=== PATIENT | male | born 1995 | race American Indian/Alaskan Native ===

== ENCOUNTER 2023-07-01 14:47 | Outpatient (REF) | payer OTHER, SELFPAY ==
[2023-07-01 16:53] LABS: MANUAL DIFF FLAG NO
[2023-07-01 17:33] LABS: Basophils Absolute Auto 0.1 X10*3/uL (0.0-0.2); Basophils Percent Auto 0.5 % (0-2); Eosinophils Absolute Auto 0.1 X10*3/uL (0.0-0.4); Hematocrit 44.4 % (42.0-52.0); Hemoglobin 15.1 g/dl (14.0-18.0); Imm Gran Abs Auto 0.03 X10*3/uL (0.00-0.03); Imm Gran Pct Auto 0.3 % (0.0-0.4); Lymphocytes Absolute Auto 2.9 X10*3/uL (1.2-4.9); Lymphocytes Percent Auto 24.5 % (20-40); Mean Corpuscular Hemoglobin 28.8 pg (27.0-33.0); Mean Corpuscular Volume 84.7 fL (80.0-98.0); Monocytes Percent Auto 8.2 % (2-11); Neutrophils Absolute Auto 7.6 x10*3/uL (2.0-8.3); Neutrophils Percent Auto 65.5 % (45-73); Platelet Count 299 X10*3/uL (160-400); Red Blood Count 5.24 X10*6/uL (4.60-5.80); Red Cell Distribution Width 11.9 % (11.0-16.0); White Blood Count 11.7 X10*3/uL (4.8-10.8)
[2023-07-01 18:27] LABS: Alanine Aminotransferase 30 U/L (0-40); Albumin Level 4.7 g/dL (3.5-5.0); Alkaline Phosphatase 78 U/L (39-117); Anion Gap 13 (12-20); Aspartate Amino Transferase 24 U/L (5-37); Blood Urea Nitrogen 17 mg/dL (9-16); Calcium 9.7 mg/dL (8.4-10.2); Carbon Dioxide 28 mmol/L (22-29); Chloride 103 mmol/L (96-108); Estimated Glomerular Filt Rate > 60; Glucose Random 81 mg/dL (60-115); Potassium 3.8 mmol/L (3.3-5.1); Sodium 140 mmol/L (135-145)
[2023-07-01 18:39] LABS: Bilirubin Total 0.4 mg/dL (0.0-1.0)
[2023-07-01 18:41] LABS: TSH reflex Free T4 0.72 uIU/mL (0.32-4.0)
== END 2023-07-01 14:48 | disposition home or self-care (01) ==
LOC: HO.LAB 14:47
PROVIDERS: PCP Student in an Organized Health Care Education/Training Program; Visit Provider Nurse Practitioner
DX: R10.9 Unspecified abdominal pain (principal); K59.04 Chronic idiopathic constipation
CPT/HCPCS: 36415; 80053; 84443; 85025

== ENCOUNTER 2023-07-01 14:47 | Outpatient (AMB) | payer OTHER, SELFPAY ==
--- NOTE | 2023-07-01 14:52 | A.OFFVIS_ITS ---
Intake Vital Signs 07/01/23 15:30 Height 5 ft 10 in Weight 232 lb 5.875 oz BMI 33.3 BP 131/61 Blood Pressure Location Rt brachial Position Sitting Pulse 77 Intake Visit Reasons: Constipation, bloating, abdominal pain Intake Note: Patient presents to in office visit today as a new patient for constipation, bloating, and abdominal pain. CC: Patient c/o constipation, bloating, and abdominal pain since the end of January. Per patient the constipations fluctuates but is now a little bit better. He also reports acid reflux and heartburn sometimes but mostly related to spicy foods or dairy. Bingo Clerk Required: No Accompanied by: Self / Same As Patient Allergies azithromycin [From Zithromax] Allergy (Severe, Verified 07/01/23 15:34) Rash Medication List - Last Reconciled 07/01/23 by ROSA Byrd Lactobac 40-Bifido 3-S.thermop 100 billion cell (Probiotic) caps PO multivitamin 1 tab PO DAILY omega 2-sep-xka-fish oil 100-160-1,000 mg (Fish Oil) 1 cap PO DAILY polyethylene glycol 3350 (Miralax) 17 grams PO DAILY simethicone (Gas Relief (simethicone)) 125 mg PO TID PRN HPI Constipation, bloating, abdominal pain HPI Details 28-year-old male here for initial evalua tion of constipation, bloating, and abdominal pain. He is referred by [facility] in [facility]. PMX Obesity-BMI 34.6 Abdominal pain -right lower quadrant Back pain * SURGICAL HISTORY Tomsillectomy and adenoidectomy ? nasal septoplasty * ALLERGIES Zithromax-rash Environmental, dogs, cats etc * [employer] LABS: No labs in our system REVIEW OF LABS NOTES AND IMAGING FROM [facility] BTCJam ?12.6 https://[facility] [employer]ee [employer]ie.DataRobot.c om/mp_mobile/mpage s/reports/mp_unifi ed_driver?paramete rs=^MINE^,16316951 .0,481853780.0,270 28360.0,566857057. 0,1121.0,%22MP_REA CH%22,%22../../res ources/UnifiedCont ent%22,%22mp_reach _v5%22,9# 13:45 -- RBC 4.[address] [facility] [employer].com.[employer] m/Classkick/Bahu /reports/mp_unifie d_driver?parameter s=^MINE^,26461653. 0,886415455.0,2702 5013.0,123970492.0 ,1121.0,%22MP_REAC H%22,%22../../reso urces/UnifiedConte nt%22,%22mp_reach_ v5%22,9# 3 21:43 4.[address]://[facility] [facility] [employer]Classkick/Bahu /reports/mp_unifie d_driver?parameter s=^MINE^,72322930. 0,383156293.0,2702 5013.0,561335791.0 ,1121.0,%22MP_REAC H%22,%22../../reso urces/UnifiedConte nt%22,%22mp_reach_ v5%22,9# 3 13:45 -- Hgb 14.[address] https://[facility] [facility] Celulares.com.[employer] m/Classkick/Bahu /reports/mp_unifie d_driver?parameter s=^MINE^,37114022. 0,387407462.0,2702 5013.0,999308462.0 ,1121.0,%22MP_REAC H%22,%22../../reso urces/UnifiedConte nt%22,%22mp_reach_ v5%22,9# 3 21:[address] 14.[address] [facility] [employer].com.[employer] m/Classkick/Bahu /reports/mp_unifie d_driver?parameter s=^MINE^,72589378. 0,743641572.0,2702 5013.0,721723237.0 ,1121.0,%22MP_REAC H%22,%22../../reso urces/UnifiedConte nt%22,%22mp_reach_ v5%22,9# 3 13:45 -- Hct 43.[address] https://[facility] [facility] Netli /Classkick/Bahu /reports/mp_unifie d_driver?parameter s=^MINE^,29653001. 0,604013459.0,2702 5013.0,438431238.0 ,1121.0,%22MP_REAC H%22,%22../../reso urces/UnifiedConte nt%22,%22mp_reach_ v5%22,9# 3 21:43 42.[address]://[facility] [facility] [employer]Classkick/Bahu /reports/mp_unifie d_driver?parameter s=^MINE^,19174608. 0,614407900.0,2702 5013.0,430374820.0 ,1121.0,%22MP_REAC H%22,%22../../reso urces/UnifiedConte nt%22,%22mp_reach_ v5%22,9# 3 13:45 -- MCV 87.1 https://[facility] hospitalBazelevs Innovations.[employer]/Classkick/Bahu /reports/mp_unifie d_driver?parameter s=^MINE^,66158099. 0,174781080.0,2702 5013.0,956886061.0 ,1121.0,%22MP_REAC H%22,%22../../reso urces/UnifiedConte nt%22,%22mp_reach_ v5%22,9# 3 21:43 85.3 https://[facility] hospitalPeri[facility]/Classkick/Bahu /reports/mp_unifie d_driver?parameter s=^MINE^,21250838. 0,952732378.0,2702 5013.0,100770660.0 ,1121.0,%22MP_REAC H%22,%22../../reso urces/UnifiedConte nt%22,%22mp_reach_ v5%22,9# 3 13:45 -- MCH 29.[address] https://[facility] [facility] Netli m/Classkick/Bahu /reports/mp_unifie d_driver?parameter s=^MINE^,46476957. 0,782066862.0,2702 5013.0,694432461.0 ,1121.0,%22MP_REAC H%22,%22../../reso urces/UnifiedConte nt%22,%22mp_reach_ v5%22,9# 3 21:43 28.7 https://[facility] Netli /Classkick/Bahu /reports/mp_unifie d_driver?parameter s=^MINE^,58025550. 0,136911727.0,2702 5013.0,366096496.0 ,1121.0,%22MP_REAC H%22,%22../../reso urces/UnifiedConte nt%22,%22mp_reach_ v5%22,9# 3 13:45 -- [facility] 33.[address] https://[facility] [facility] Netli /Classkick/Bahu /reports/mp_unifie d_driver?parameter s=^MINE^,80077716. 0,448093931.0,2702 5013.0,112157009.0 ,1121.0,%22MP_REAC H%22,%22../../reso urces/UnifiedConte nt%22,%22mp_reach_ v5%22,9# 3 21:43 33.6 https://[facility] [employer]com.[employer] m/Classkick/Bahu /reports/mp_unifie d_driver?parameter s=^MINE^,88925834. 0,509996173.0,2702 5013.0,276175200.0 ,1121.0,%22MP_REAC H%22,%22../../reso urces/UnifiedConte nt%22,%22mp_reach_ v5%22,9# 3 13:45 -- Platelet Count 308 https://[employer] /Classkick/Bahu/ reports/mp_unified _driver?parameters =^MINE^,16121186.0 ,800645631.0,85984 013.0,138290300.0, 1121.0,%22MP_REACH %22,%22../../resou rces/UnifiedConten t%22,%22mp_reach_v 5%22,9# 03/20/23 21:43 296 https://[facility] [employer] /Classkick/Bahu/ reports/mp_unified _driver?parameters =^MINE^,53853618.0 ,312176436.0,67006 013.0,463822724.0, 1121.0,%22MP_REACH %22,%22../../resou rces/UnifiedConten t%22,%22mp_reach_v 5%22,9# 01/21/23 13:45 -- RDW-SD 37.[address] https://[facility] [facility] Netli /Classkick/Bahu /reports/mp_unifie d_driver?parameter s=^MINE^,98046868. 0,087702327.0,2702 5013.0,943645508.0 ,1121.0,%22MP_REAC H%22,%22../../reso urces/UnifiedConte nt%22,%22mp_reach_ v5%22,9# 3 21:43 37.1 https://[email or web address] m/Classkick/Bahu /reports/mp_unifie d_driver?parameter s=^MINE^,28847462. 0,876426128.0,2702 5013.0,746907033.0 ,1121.0,%22MP_REAC H%22,%22../../reso urces/UnifiedConte nt%22,%22mp_reach_ v5%22,9# 3 13:45 -- MPV 10.1 https://[email or web address] m/Classkick/Bahu /reports/mp_unifie d_driver?parameter s=^MINE^,59327968. 0,204387116.0,2702 5013.0,821299340.0 ,1121.0,%22MP_REAC H%22,%22../../reso urces/UnifiedConte nt%22,%22mp_reach_ v5%22,9# 3 21:43 10.0 https://[email or web address] m/Classkick/Bahu /reports/mp_unifie d_driver?parameter s=^MINE^,03744241. 0,169221161.0,2702 5013.0,499770430.0 ,1121.0,%22MP_REAC H%22,%22../../reso urces/UnifiedConte nt%22,%22mp_reach_ v5%22,9# 3 13:45 -- Nucleated RBC (Aut omated) 0.0 https://FO[employer].com /Classkick/Bahu/ reports/mp_unified _driver?parameters =^MINE^,97285500.0 ,123526802.0,60317 013.0,456232764.0, 1121.0,%22MP_REACH %22,%22../../resou rces/UnifiedConten t%22,%22mp_reach_v 5%22,9# 03/20/23 21:43 0.5 https://[employer].com /Classkick/Bahu/ reports/mp_unified _driver?parameters =^MINE^,61289477.0 ,936349174.0,39512 013.0,878722736.0, 1121.0,%22MP_REACH %22,%22../../resou rces/UnifiedConten t%22,%22mp_reach_v 5%22,9# 01/21/23 13:45 -- Abs. NRBC 0.0 https://[facility] [employer] /Classkick/Bahu/ reports/mp_unified _driver?parameters =^MINE^,33343016.0 ,949075623.0,56797 013.0,373153134.0, 1121.0,%22MP_REACH %22,%22../../resou rces/UnifiedConten t%22,%22mp_reach_v 5%22,9# 03/20/23 21:43 0.1 https://[facility] monieBeijing [employer]un [employer] /Classkick/Bahu/ reports/mp_unified _driver?parameters =^MINE^,18942695.0 ,295567270.0,43598 013.0,349554111.0, 1121.0,%22MP_REACH %22,%22../../resou rces/UnifiedConten t%22,%22mp_reach_v 5%22,9# 01/21/23 13:45 -- Abs. Neut 6.8 https://[facility] [employer] /Classkick/Bahu/ reports/mp_unified _driver?parameters =^MINE^,24141364.0 ,302066760.0,56053 013.0,279225677.0, 1121.0,%22MP_REACH %22,%22../../resou rces/UnifiedConten t%22,%22mp_reach_v 5%22,9# 03/20/23 21:43 ?10.7 https://leny campa.DataRobot.[facility]/Classkick/Photos to Photos s/reports/mp_unifi ed_driver?paramete rs=^MINE^,90527941 .0,084147174.0,270 14686.0,659735762. 0,1121.0,%22MP_REA CH%22,%22../../res ources/UnifiedCont ent%22,%22mp_reach _v5%22,9# 13:45 -- Abs. Lymph 3.0 https://FOB.com /Classkick/Bahu/ reports/mp_unified _driver?parameters =^MINE^,96012904.0 ,454601568.0,80462 013.0,313601940.0, 1121.0,%22MP_REACH %22,%22../../resou rces/UnifiedConten t%22,%22mp_reach_v 5%22,9# 03/20/23 21:43 1.2 https://FOB.com /Classkick/Bahu/ reports/QPSoftware_unified _driver?parameters =^MINE^,88117255.0 ,010647944.0,39734 013.0,543317123.0, 1121.0,%22MP_REACH %22,%22../../resou rces/UnifiedConten t%22,%22mp_reach_v 5%22,9# 01/21/23 13:45 -- Abs. [place] 1.1 https://FOB.com /Classkick/Bahu/ reports/QPSoftware_unified _driver?parameters =^MINE^,92158252.0 ,080325145.0,94255 013.0,115807020.0, 1121.0,%22MP_REACH %22,%22../../resou rces/UnifiedConten t%22,%22mp_reach_v 5%22,9# 03/20/23 21:43 0.6 https://FO[employer].com /Classkick/Bahu/ reports/QPSoftware_unified _driver?parameters =^MINE^,25462635.0 ,148969311.0,25262 013.0,172078824.0, 1121.0,%22MP_REACH %22,%22../../resou rces/UnifiedConten t%22,%22mp_reach_v 5%22,9# 01/21/23 13:45 -- Abs. Eo 0.1 https://FOB.com /Classkick/Bahu/ reports/QPSoftware_BoxCast _driver?parameters =^MINE^,51775806.0 ,094177914.0,20320 013.0,536886519.0, 1121.0,%22MP_REACH %22,%22../../resou rces/UnifiedConten t%22,%22mp_reach_v 5%22,9# 03/20/23 21:43 0.0 https://FO[employer].com /Classkick/Bahu/ reports/QPSoftware_BoxCast _driver?parameters =^MINE^,67006477.0 ,479161330.0,04071 013.0,193715577.0, 1121.0,%22MP_REACH %22,%22../../resou rces/UnifiedConten t%22,%22mp_reach_v 5%22,9# 01/21/23 13:45 -- Abs. Baso 0.1 https://FOB.com /Classkick/Bahu/ reports/QPSoftware_unified _driver?parameters =^MINE^,78430641.0 ,408059369.0,88907 013.0,990660430.0, 1121.0,%22MP_REACH %22,%22../../resou rces/UnifiedConten t%22,%22mp_reach_v 5%22,9# 03/20/23 21:43 0.1 https://FO[employer].com /Classkick/Bahu/ reports/QPSoftware_BoxCast _driver?parameters =^MINE^,81020016.0 ,478218021.0,58381 013.0,161298438.0, 1121.0,%22MP_REACH %22,%22../../resou rces/UnifiedConten t%22,%22mp_reach_v 5%22,9# 01/21/23 13:45 -- Neut % 60.9 https://[facility].[employer] /Classkick/Bahu /reports/mp_unifie d_driver?parameter s=^MINE^,18461115. 0,033956801.0,2702 5013.0,531199720.0 ,1121.0,%22MP_REAC H%22,%22../../reso urces/UnifiedConte nt%22,%22mp_reach_ v5%22,9# 3 21:43 ?84.7 https://[facility] hospitalmonie.[employer].[facility]/Classkick/Photos to Photos s/reports/mp_unifi ed_driver?paramete rs=^MINE^,54776999 .0,875248172.0,270 63076.0,529598598. 0,1121.0,%22MP_REA CH%22,%22../../res ources/UnifiedCont ent%22,%22mp_reach _v5%22,9# 13:45 -- Lymph % 26.7 https://[facility].[employer] /Classkick/Bahu /reports/mp_unifie d_driver?parameter s=^MINE^,74876267. 0,311333897.0,2702 5013.0,140331873.0 ,1121.0,%22MP_REAC H%22,%22../../reso urces/UnifiedConte nt%22,%22mp_reach_ v5%22,9# 3 21:43 ?9.5 https://[facility]/Classkick/Bahu /reports/mp_unifie d_driver?parameter s=^MINE^,23124210. 0,515636564.0,2702 5013.0,111682224.0 ,1121.0,%22MP_REAC H%22,%22../../reso urces/UnifiedConte nt%22,%22mp_reach_ v5%22,9# 3 13:45 -- [place] % 10.3 https://[employer] a.DataRobot.co m/Classkick/Bahu /reports/mp_unifie d_driver?parameter s=^MINE^,24944839. 0,539715035.0,2702 5013.0,317096278.0 ,1121.0,%22MP_REAC H%22,%22../../reso urces/UnifiedConte nt%22,%22mp_reach_ v5%22,9# 3 21:43 4.6 https://FO[employer].com /Classkick/Bahu/ reports/mp_unified _driver?parameters =^MINE^,29453428.0 ,347688425.0,09899 013.0,209530227.0, 1121.0,%22MP_REACH %22,%22../../resou rces/UnifiedConten t%22,%22mp_reach_v 5%22,9# 01/21/23 13:45 -- Eos % 1.1 https://FO[employer].com /Classkick/Bahu/ reports/mp_unified _driver?parameters =^MINE^,11549234.0 ,518600479.0,05688 013.0,394695735.0, 1121.0,%22MP_REACH %22,%22../../resou rces/UnifiedConten t%22,%22mp_reach_v 5%22,9# 03/20/23 21:43 0.2 https://[employer]com /Classkick/Bahu/ reports/mp_unified _driver?parameters =^MINE^,21616552.0 ,925274720.0,63488 013.0,193359903.0, 1121.0,%22MP_REACH %22,%22../../resou rces/UnifiedConten t%22,%22mp_reach_v 5%22,9# 01/21/23 13:45 -- Baso % 0.7 https://FO[employer].com /Classkick/Bahu/ reports/QPSoftware_BoxCast _driver?parameters =^MINE^,13509187.0 ,677853461.0,80710 013.0,008959660.0, 1121.0,%22MP_REACH %22,%22../../resou rces/UnifiedConten t%22,%22mp_reach_v 5%22,9# 03/20/23 21:43 0.4 https://FO[employer].com /Classkick/Bahu/ reports/QPSoftware_BoxCast _driver?parameters =^MINE^,62973723.0 ,690067274.0,14271 013.0,195283025.0, 1121.0,%22MP_REACH %22,%22../../resou rces/UnifiedConten t%22,%22mp_reach_v 5%22,9# 01/21/23 13:45 -- Imm Gran 0.3 https://FO[employer].com /Classkick/Bahu/ reports/QPSoftware_BoxCast _driver?parameters =^MINE^,09834133.0 ,511549802.0,69133 013.0,973869096.0, 1121.0,%22MP_REACH %22,%22../../resou rces/UnifiedConten t%22,%22mp_reach_v 5%22,9# 03/20/23 21:43 0.6 https://FO[employer].com /Classkick/Bahu/ reports/QPSoftware_BoxCast _driver?parameters =^MINE^,08523104.0 ,768204583.0,20930 013.0,009916111.0, 1121.0,%22MP_REACH %22,%22../../resou rces/UnifiedConten t%22,%22mp_reach_v 5%22,9# 01/21/23 13:45 -- Abs. Imm Gran 0.0 https://FO[employer].com /Classkick/Bahu/ reports/mp_unified _driver?parameters =^MINE^,36484405.0 ,353993955.0,51237 013.0,662965105.0, 1121.0,%22MP_REACH %22,%22../../resou Parachutees/UnifiedConten t%22,%22mp_reach_v 5%22,9# 03/20/23 21:43 0.1 https://[employer]com /Classkick/Bahu/ reports/mp_unified _driver?parameters =^MINE^,12817771.0 ,646446852.0,55950 013.0,571105310.0, 1121.0,%22MP_REACH %22,%22../../resou Parachutees/UnifiedConten t%22,%22mp_reach_v 5%22,9# 01/21/23 13:45 -- Hold Blue Top SPECIMEN DISCARDE D AFTER 4 HOURS. h ttps://[employer]/mpages/report s/mp_unified_drive r?parameters=^MINE ^,30347797.0,84551 4436.0,35959290.0, 335949106.0,1121.0 ,%22MP_REACH%22,%2 2../../resources/U nifiedContent%22,% 22mp_reach_v5%22,9 # 03/20/23 21:43 SPECIMEN DISCARDE D AFTER 4 HOURS. h ttps://[employer]/mpages/report s/mp_unified_drive r?parameters=^MINE ^,22244145.0,13902 4436.0,06669460.0, 864796932.0,1121.0 ,%22MP_REACH%22,%2 2../../resources/U nifiedContent%22,% 22mp_reach_v5%22,9 # 01/21/23 13:45 -- -CHEMISTRY (20) Sodium 140 https://FOB.com /Classkick/Bahu/ reports/QPSoftware_BoxCast _driver?parameters =^MINE^,96996197.0 ,971863010.0,09513 013.0,188296423.0, 1121.0,%22MP_REACH %22,%22../../resou rces/UnifiedConten t%22,%22mp_reach_v 5%22,9# 03/20/23 21:43 140 https://FOB.com /Classkick/Bahu/ reports/QPSoftware_BoxCast _driver?parameters =^MINE^,22791709.0 ,153070406.0,21040 013.0,964657015.0, 1121.0,%22MP_REACH %22,%22../../resou rces/UnifiedConten t%22,%22mp_reach_v 5%22,9# 01/21/23 13:45 -- Potassium 3.6 https://FO[employer].com /Classkick/Bahu/ reports/QPSoftware_BoxCast _driver?parameters =^MINE^,90385155.0 ,945307100.0,89024 013.0,653566357.0, 1121.0,%22MP_REACH %22,%22../../resou rces/UnifiedConten t%22,%22mp_reach_v 5%22,9# 03/20/23 21:43 4.4 https://FO[employer].com /Classkick/Bahu/ reports/QPSoftware_BoxCast _driver?parameters =^MINE^,03726601.0 ,897755012.0,49988 013.0,770446869.0, 1121.0,%22MP_REACH %22,%22../../resou rces/UnifiedConten t%22,%22mp_reach_v 5%22,9# 01/21/23 13:45 -- Chloride 101 https://FO[employer].com /Classkick/Bahu/ reports/mp_unified _driver?parameters =^MINE^,53845104.0 ,458064536.0,85607 013.0,460023216.0, 1121.0,%22MP_REACH %22,%22../../resou rces/UnifiedConten t%22,%22mp_reach_v 5%22,9# 03/20/23 21:43 104 https://[employer].com /Classkick/Bahu/ reports/mp_unified _driver?parameters =^MINE^,16880072.0 ,492823050.0,09200 013.0,996254271.0, 1121.0,%22MP_REACH %22,%22../../resou rces/UnifiedConten t%22,%22mp_reach_v 5%22,9# 01/21/23 13:45 -- Bicarbonate Level 24 https://[employer]/ [employer]kick/Bahu/r eports/mp_unified_ taxi driver?parameters= ^MINE^,63333582.0, 509970708.0,716054 13.0,289574235.0,1 121.0,%22MP_REACH% 22,%22../../resour estela/UnifiedContent %22,%22mp_reach_v5 %22,903/20/23 21:43 27 https://[employer]/ Classkick/Bahu/r eports/QPSoftware_unified_ taxi driver?parameters= ^MINE^,44502054.0, 078790552.0,158810 13.0,919699789.0,1 121.0,%22MP_REACH% 22,%22../../resour estela/UnifiedContent %22,%22mp_reach_v5 %22,901/21/23 13:45 -- Anion Gap 15 https://[employer]/ Classkick/mpages/r eports/mp_unified_ taxi driver?parameters= ^MINE^,82208010.0, 755409332.0,815507 13.0,790339319.0,1 121.0,%22MP_REACH% 22,%22../../resour estela/UnifiedContent %22,%22mp_reach_v5 %22,9# 03/20/23 21:43 [address] [facility] [facility] .[employer]/m p_mobile/mpages/re ports/mp_unified_d river?parameters=^ MINE^,72579768.0,1 32163224.0,2394589 3.0,830381733.0,11 21.0,%22MP_REACH%2 2,%22../../resourc es/UnifiedContent% 22,%22mp_reach_v5% 22,9# 01/21/23 1 3:45 -- Glucose Level ?[address] https://[address] [facility] aea.[employer] m/Classkick/Bahu /reports/mp_unifie d_driver?parameter s=^MINE^,19434125. 0,629236237.0,2702 5013.0,187074044.0 ,1121.0,%22MP_REAC H%22,%22../../reso urces/UnifiedConte nt%22,%22mp_reach_ v5%22,9# 3 21:43 ?[address]://[facility] [facility] aea.[employer] m/mp_mobile/Where[employer]ges /reports/mp_unifie d_driver?parameter s=^MINE^,20652881. 0,579953259.0,2702 5013.0,048562412.0 ,1121.0,%22MP_REAC H%22,%22../../reso urces/UnifiedConte nt%22,%22mp_reach_ v5%22,9# 3 13:45 -- BUN [address] [facility] sherron.[employer]/ [employer]kick/WhereNetges/r eports/mp_unified_ taxi driver?parameters= ^MINE^,94446250.0, 732124490.0,561488 13.0,893589508.0,1 121.0,%22MP_REACH% 22,%22../../resour estela/UnifiedContent %22,%22mp_reach_v5 %22,9# 03/20/23 21:43 14 https://[facility] sherronBeijing [employer]un [employer]/ Classkick/Bahu/r eports/mp_unified_ taxi driver?parameters= ^MINE^,59815654.0, 704056101.0,875859 13.0,469478189.0,1 121.0,%22MP_REACH% 22,%22../../resour estela/UnifiedContent %22,%22mp_reach_v5 %22,9# 01/21/23 13:45 -- Creatinine-Blood 1.[address] [facility] [facility]air[facility] monieBeijing Herun [employer] /Classkick/Bahu/ reports/mp_unified _driver?parameters =^MINE^,81301329.0 ,143276303.0,93559 013.0,444169064.0, 1121.0,%22MP_REACH %22,%22../../resou rces/UnifiedConten t%22,%22mp_reach_v 5%22,9# 03/20/23 21:43 ?1.[address]://[address] [facility] aesherron.[employer].tx m/Classkick/Bahu /reports/mp_unifie d_driver?parameter s=^MINE^,05520008. 0,413717285.0,2702 5013.0,378249143.0 ,1121.0,%22MP_REAC H%22,%22../../reso urces/UnifiedConte nt%22,%22mp_reach_ v5%22,9# 3 13:45 -- Estimated GFR Crea tinine *82 https://[employer] /Classkick/Bahu/ reports/mp_unified _driver?parameters =^MINE^,68619360.0 ,936007161.0,05965 013.0,780802239.0, 1121.0,%22MP_REACH %22,%22../../resou rces/UnifiedConten t%22,%22mp_reach_v 5%22,9# 03/20/23 21:43 *[address] [facility] clairsherron lomaxBeijing Herun [employer] /Classkick/Bahu/ reports/mp_unified _driver?parameters =^MINE^,98316315.0 ,760602462.0,17350 013.0,738464981.0, 1121.0,%22MP_REACH %22,%22../../resou rces/UnifiedConten t%22,%22mp_reach_v 5%22,9# 01/21/23 13:45 -- Calcium 9.4 https://[employer] /[employer]/Bahu/ reports/QPSoftware_BoxCast _driver?parameters =^MINE^,66422530.0 ,196534017.0,86056 013.0,665699772.0, 1121.0,%22MP_REACH %22,%22../../resou rces/UnifiedConten t%22,%22mp_reach_v 5%22,9# 03/20/23 21:43 *10.3 https://wil campa.[employer]/[employer]kick/mpage s/reports/mp_unifi ed_driver?paramete rs=^MINE^,07681233 .0,163648020.0,270 48003.0,001926426. 0,1121.0,%22MP_REA CH%22,%22../../res ources/UnifiedCont ent%22,%22mp_reach _v5%22,9# 13:45 -- Protein, Total 7.5 https://[employer] /[employer]/Bahu/ reports/mp_BoxCast _driver?parameters =^MINE^,23928073.0 ,479933390.0,45996 013.0,691967109.0, 1121.0,%22MP_REACH %22,%22../../resou rces/UnifiedConten t%22,%22mp_reach_v 5%22,9# 03/20/23 21:43 -- -- Albumin 4.7 https://[employer] /[employer]/Bahu/ reports/mp_BoxCast _driver?parameters =^MINE^,10385648.0 ,610747378.0,40584 013.0,924740411.0, 1121.0,%22MP_REACH %22,%22../../resou rces/UnifiedConten t%22,%22mp_reach_v 5%22,9# 03/20/23 21:43 -- -- AG Ratio 1.7 https://[employer] /[employer]/Bahu/ reports/mp_BoxCast _driver?parameters =^MINE^,85743891.0 ,480014265.0,52377 013.0,153276945.0, 1121.0,%22MP_REACH %22,%22../../resou rces/UnifiedConten t%22,%22mp_reach_v 5%22,9# 03/20/23 21:43 -- -- Alkaline Phosphata se 82 https://[employer]/ [employer]/Bahu/r eports/mp_BoxCast_ taxi driver?parameters= ^MINE^,87062742.0, 036505371.0,852845 13.0,749216447.0,1 121.0,%22MP_REACH% 22,%22../../resour estela/UnifiedContent %22,%22mp_reach_v5 %22,9# 03/20/23 21:43 -- -- Lipase 27 https://[employer]/ [employer]/Bahu/r eports/QPSoftware_BoxCast_ taxi driver?parameters= ^MINE^,41423588.0, 817095129.0,586969 13.0,814161118.0,1 121.0,%22MP_REACH% 22,%22../../resour estela/UnifiedContent %22,%22mp_reach_v5 %22,9# 03/20/23 21:43 -- -- AST (SGOT) 17 https://[employer]/ [employer]/Bahu/r eports/QPSoftware_BoxCast_ taxi driver?parameters= ^MINE^,57387580.0, 379197209.0,924235 13.0,372044524.0,1 121.0,%22MP_REACH% 22,%22../../resour estela/UnifiedContent %22,%22mp_reach_v5 %22,9# 03/20/23 21:43 -- -- ALT (SGPT) 18 https://[employer]/ [employer]/Bahu/r eports/QPSoftware_unified_ taxi driver?parameters= ^MINE^,86450334.0, 053318645.0,866233 13.0,196644042.0,1 121.0,%22MP_REACH% 22,%22../../resour estela/UnifiedContent %22,%22mp_reach_v5 %22,9# 03/20/23 21:43 -- -- Bilirubin, Total 0.3 https://[employer] /[employer]/Bahu/ reports/mp_unified _driver?parameters =^MINE^,19583998.0 ,796294458.0,10270 013.0,308057681.0, 1121.0,%22MP_REACH %22,%22../../resou rces/UnifiedConten t%22,%22mp_reach_v 5%22,9# 03/20/23 21:43 -- -- Lactate 0.9 https://[employer] /[employer]/Bahu/ reports/mp_unified _driver?parameters =^MINE^,95216846.0 ,346552887.0,97280 013.0,238307578.0, 1121.0,%22MP_REACH %22,%22../../resou keyaes/UnifiedConten t%22,%22mp_reach_v 5%22,9# 03/20/23 21:43 -- -- Hold Gel Top SPECIMEN DISCARDE D AFTER 1 WEEK htt ps://[employer]/WhereNetges/reports/ mp_unified_driver? parameters=^MINE^, 26781530.0,8095212 36.0,56762548.0,30 1277758.0,1121.0,% 22MP_REACH%22,%22. ./../resources/Uni fiedContent%22,%22 mp_reach_v5%22,9# 03/20/23 21:43 SPECIMEN DISCARDE D AFTER 1 WEEK htt ps://[employer]/Silk le/mpages/reports/ mp_unified_driver? parameters=^MINE^, 64087987.0,5275272 36.0,91484593.0,30 9571498.0,1121.0,% 22MP_REACH%22,%22. ./../resources/Uni fiedContent%22,%22 mp_reach_v5%22,9# 01/21/23 13:45 -- -URINE STUDIES (14) Appear/Color, Urin e COLORLESS https:/ /[employer]kick/m pages/reports/mp_u nified_driver?para meters=^MINE^,2691 8542.0,865066213.0 ,30256697.0,613412 571.0,1121.0,%22MP _REACH%22,%22../.. /resources/Unified Content%22,%22mp_r each_v5%22,9# 21:30 -- -- Clarity CLEAR https://Cellesleny campa.[employer].c /mp_mobile/mpage s/reports/mp_ContextWeb ed_driver?paramete rs=^MINE^,22860556 .0,796496348.0,270 02042.0,260485193. 0,1121.0,%22MP_REA CH%22,%22../../res ources/UnifiedCont ent%22,%22mp_reach _v5%22,9# 21:30 -- -- Specific [place], Urine 1.010 https://wil campa.[employer].[facility]/Classkick/Photos to Photos s/reports/mp_uniCRATE Technology GmbH ed_driver?paramete rs=^MINE^,30863503 .0,900625553.0,270 07150.0,257233535. 0,1121.0,%22MP_REA CH%22,%22../../res ources/UnifiedCont ent%22,%22mp_reach _v5%22,9# 21:30 -- -- pH, Urine 7.0 https://[employer] /[employer]kick/WhereNetges/ reports/mp_unified _driver?parameters =^MINE^,67793965.0 ,453985388.0,50951 013.0,347059147.0, 1121.0,%22MP_REACH %22,%22../../respaul lauraes/UnifiedConten t%22,%22mp_reach_v 5%22,9# 03/20/23 21:30 -- -- Albumin, Urine NEGATIVE https:// [employer]kick/QPSoftware ages/reports/mp_un ified_driver?sharif eters=^MINE^,21689 542.0,632455812.0, 01593467.0,2009148 71.0,1121.0,%22MP_ REACH%22,%22../../ resources/UnifiedC ontent%22,%22mp_re ach_v5%22,9# 21:30 -- -- Glucose, Urine NEGATIVE https:// A Fourth Act/[employer]/QPSoftware ages/reports/mp_un ified_driver?sharif eters=^MINE^,54699 542.0,943377550.0, 80705772.0,6439420 71.0,1121.0,%22MP_ REACH%22,%22../../ resources/Softgate SystemsC ontent%22,%22mp_re ach_v5%22,9# 21:30 -- -- Ketones, Urine NEGATIVE https:// A Fourth Act/[employer]/QPSoftware ages/reports/mp_un ified_driver?sharif eters=^MINE^,91845 542.0,232308987.0, 67697723.0,6882265 71.0,1121.0,%22MP_ REACH%22,%22../../ resources/DE Spirits ontent%22,%22mp_re ach_v5%22,9# 21:30 -- -- Bilirubin, Urine NEGATIVE https:// VB [employer]/Classkick/QPSoftware ages/reports/mp_un ified_driver?sharif eters=^MINE^,32253 542.0,164742941.0, 61203782.0,0060451 71.0,1121.0,%22MP_ REACH%22,%22../../ resources/DE Spirits ontent%22,%22mp_re ach_v5%22,9# 21:30 -- -- Hemoglobin, Urine NEGATIVE https:// VB [employer]ags.[employer]/Classkick/mp ages/reports/mp_un ified_driver?sharif eters=^MINE^,56329 542.0,450397155.0, 20992214.0,1505237 71.0,1121.0,%22MP_ REACH%22,%22../../ resources/Softgate SystemsC ontent%22,%22mp_re ach_v5%22,9# 21:30 -- -- Nitrite, Urine NEGATIVE https:// A Fourth Act/mp_mobile/mp ages/reports/mp_un ified_driver?sharif eters=^MINE^,92025 542.0,943875065.0, 31169341.0,4296621 71.0,1121.0,%22MP_ REACH%22,%22../../ resources/UnifiedC ontent%22,%22mp_re ach_v5%22,9# 21:30 -- -- Leukocyte, Urine NEGATIVE https:// A Fourth Act/mp_mobile/mp ages/reports/mp_un ified_driver?sharif eters=^MINE^,77360 542.0,801832817.0, 87054377.0,0665189 71.0,1121.0,%22MP_ REACH%22,%22../../ resources/UnifiedC ontent%22,%22mp_re ach_v5%22,9# 21:30 -- -- Urobilinogen NORMAL https://SmartThings/QPSoftware_mobile/mpag es/reports/mp_unif ied_driver?paramet ers=^MINE^,5038239 2.0,791781316.0,27 298997.0,183457810 .0,1121.0,%22MP_RE ACH%22,%22../../re sources/UnifiedCon tent%22,%22mp_reac h_v5%22,9# 03/20 21:30 -- -- Hold Urine Culture Testing available 48 hours from jonathan e of collection. h ttps://[employer]/mp_mo bile/mpages/report s/mp_unified_drive r?parameters=^MINE ^,75580048.0,38134 4436.0,25248795.0, 107452962.0,1121.0 ,%22MP_REACH%22,%2 2../../resources/U nifiedContent%22,% 22mp_reach_v5%22,9 # 03/20/23 21:30 -- CT ABDOMEN AND PELVIS 03/21/23 FINDINGS: Pathology Manager View Findings, Lines and Tubes: None. Visualized Chest: Lung bases are clear. No pleural effusion. The heart is normal in size. No pericardial effusion. Diaphragm: Normal. Liver: Normal. Gallbladder: No CT evidence of gallbladder pathology. Bile ducts: No biliary ductal dilation. Spleen: Normal. Pancreas: Normal. Adrenal glands: Normal. Kidneys and ureters: No hydronephrosis, stones, or suspicious masses. Bladder: Normal. Reproductive organs: Normal prostate gland and seminal vesicles. Stomach, small bowel, and large bowel: Normal. Appendix: Normal. Peritoneum and retroperitoneum: No ascites or pneumoperitoneum. No omental or mesenteric lesions. Lymph nodes: Several borderline enlarged inguinal lymph nodes measuring up to 1.0 cm. No suspicious abdominopelvic adenopathy. Blood vessels: Normal. No aneurysm. No evidence of venous thrombosis. Abdominal and pelvic wall: Unremarkable. Bones: No acute abnormality. No suspicious bone lesion. IMPRESSION: No acute process in the abdomen and pelvis. Normal appendix. TODAY'S VISIT APPARENTLY, in the PCP note mentions that he was evaluated at an emergency department of on named location and had a CT scan lab work not concerning for any severe process such as appendicitis colitis etc. This was at [facility]. (I discovered these reports after the actual visit and include them in the record). The problem started in late Jan with a feeling of discomfort as a pushing pain in the RLQ. He was experiencing CIC at the time, he felt like he had gas trapping, I felt like I had to fart and I couldn't. He does drink a lot of seltzer water throughout the day so we could be overloading his system with gas. We did discuss this together. He was then referred to PT for a possible weakened abdominal wall, but this was not a problem and then he was put on miralax and omeprazole. The CIC waxed and waned, then he was put on abx and this really cleared me out. However the CIC is returning with the lower abdominal bloating. This, despite having full BM's sometimes twice a day. He does have frequent but intermittent feeling of incomplete evacuation. He has some days when he feels quite well and can pass gas, and some when he does not. He eats a lot of fiber including fiber in shakes and greens. His general fiber level has not changed, he drinks a lot of fluids/water in a day. 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 There is a FHX of colon polyps in 50's in maternal grandmother and father. [facility] Surgical History Hx of tonsillectomy H/O adenoidectomy Family History Maternal Grandfather Colon polyps Heart attack Paternal Grandfather Colon polyps Social History Alcohol intake: current Alcohol intake frequency: a few times a week Alcohol type: beer and wine Patient Tobacco Use Status: Former Tobacco user Quit Date: 2021 e-Cigarette/Vaping Use: Former Use Date or number of years quit: Quit 2021 Review of Systems Const Denies fatigue, Denies fever(s), Denies night sweats, Denies poor appetite and Denies weight loss ENT Reports Normal hearing present, Denies dental pain, Denies dysphagia, Denies hearing loss, Denies mouth pain, Denies odynophagia, Denies throat swelling, Denies tongue swelling and Reports other (Dentition adequate) Card Reports no additional complaints Resp Reports no additional complaints GI Details: Reports abdominal pain, Denies melena, Reports bloating, Denies hematochezia, Reports change in bowel habits, Reports constipation, Denies GI cramping, Denies dysphagia, Denies excessive flatus, Denies early satiety, Denies heartburn, Denies diarrhea, Denies nausea, Denies odynophagia, Denies vomiting and Denies hematemesis Musc Reports back pain Skin/Breast Denies pruritus, Denies lesions, Denies rash and Denies jaundice Neuro Reports Normal hearing present and Denies Abnormal speech present Endo Denies fatigue Aller/Immun Denies throat swelling and Denies tongue swelling Physical Exam Vital Signs: Last Vital Signs Pulse 77 07/01/23 15:30 BP 131/61 07/01/23 15:30 BMI result Body Mass Index 33.3 Const General: cooperative, no acute distress, well developed and well groomed Nutritional Appearance: well nourished and overweight Orientation/consciousness: oriented to person, oriented to place and oriented to time Limitations: No language barrier HEENT Head: Yes normocephalic and Yes atraumatic Eyes General: appearance normal, both eyes and all related structures Pupils: Equal, round and reactive pupils present Neck Neck: Yes normal visual inspection and Yes no lymphadenopathy Thyroid: Thyroid normal Resp Effort & Inspection: normal respiratory effort and able to speak in complete sentences Auscultation: clear to auscultation bilaterally Cardio Rate: regular rate Rhythm: regular rhythm Heart sounds: Normal, physiologic split S2 sound present Peripheral pulses: radial pulses present and posterior tibial pulses present GI Inspection: No distended, No Abdominal panniculus present, Yes obesity and Yes striae Palpation (GI): Soft to palpation, nontender, no guarding, not rigid and No hepatosplenomegaly present Percussion: Yes normal to percussion Auscultation: normal bowel sounds Rectal Exam - Male: Yes deferred Skin General skin exam: no rashes or lesions noted, turgor normal, skin not dry, no jaundice, No spider nevi and no striae Rashes: no rashes Nails: normal Neuro General: oriented to person, oriented to place and oriented to time Cranial nerves: Yes Equal, round and reactive pupils present and Yes Normal he aring present Speech: No Abnormal speech present Extrem General: Yes normal to inspection, No clubbing, No cyanosis and No edema Psych Appearance: grossly normal and well kempt Mental Status: mental status grossly normal Speech and movement: Normal speech and movement present Affect: normal affect Attitude: cooperative Thought process: Normal thought process present and not confabulating Thought content: Normal thought content present Insight: Fair insight present (Psych) Judgement: Fair judgement present (Psych) Assessment & Plan Assessment & Plan (1) Abdominal pain: Code(s): R10.9 - Unspecified abdominal pain (2) Chronic idiopathic constipation: Code(s): K59.04 - Chronic idiopathic constipation Plan APPARENTLY, in the PCP note mentions that he was evaluated at an emergency department of on named location and had a CT scan lab work not concerning for any severe process such as appendicitis colitis etc. This was at [facility]. (I discovered these reports after the actual visit and include them in the record). The problem started in late Jan with a feeling of discomfort as a pushing pain in the RLQ. He was experiencing CIC at the time, he felt like he had gas trapping, I felt like I had to fart and I couldn't. He does drink a lot of seltzer water throughout the day so we could be overloading his system with gas. We did discuss this together. He was then referred to PT for a possible weakened abdominal wall, but this was not a problem and then he was put on miralax and omeprazole. The CIC waxed and waned, then he was put on abx and this really cleared me out. However the CIC is returning with the lower abdominal bloating. This, despite having full BM's sometimes twice a day. He does have frequent but intermittent feeling of incomplete evacuation. He has some days when he feels quite well and can pass gas, and some when he does not. He eats a lot of fiber including fiber in shakes and greens. His general fiber level has not changed, he drinks a lot of fluids/water in a day. 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 There is a FHX of colon polyps in 50's in maternal grandmother and father. Orders: Orders Comprehensive Met. Panel 07/01/23 R10.9 - Unspecified abdominal pain Complete Blood Count Auto Diff 07/01/23 R10.9 - Unspecified abdominal pain TSH reflex Free T4 07/01/23 K59.04 - Chronic idiopathic constipation Medications: New simethicone (Gas Relief (simethicone)) 125 mg PO TID PRN 90 tabs 3RF abdominal distention Coding Level of Care Code New Pt Level 3 (79763) Diagnoses Abdominal pain R10.9 Chronic idiopathic constipation K59.04
--- NOTE | 2023-07-01 14:52 | MHC.OFFVIS ---
Intake Vital Signs 07/01/23 15:30 Height 5 ft 10 in Weight 232 lb 5.875 oz BMI 33.3 BP 131/61 Blood Pressure Location Rt brachial Position Sitting Pulse 77 Intake Visit Reasons: Constipation, bloating, abdominal pain Intake Note: Patient presents to in office visit today as a new patient for constipation, bloating, and abdominal pain. CC: Patient c/o constipation, bloating, and abdominal pain since the end of January. Per patient the constipations fluctuates but is now a little bit better. He also reports acid reflux and heartburn sometimes but mostly related to spicy foods or dairy. Clinical Services Assistant Required: No Accompanied by: Self / Same As Patient Allergies azithromycin [From Zithromax] Allergy (Severe, Verified 07/01/23 15:34) Rash Medication List - Last Reconciled 07/01/23 by ROSA Byrd Lactobac 40-Bifido 3-S.thermop 100 billion cell (Probiotic) caps PO multivitamin 1 tab PO DAILY omega 6-kum-iyo-fish oil 100-160-1,000 mg (Fish Oil) 1 cap PO DAILY polyethylene glycol 3350 (Miralax) 17 grams PO DAILY simethicone (Gas Relief (simethicone)) 125 mg PO TID PRN HPI Constipation, bloating, abdominal pain HPI Details 28-year-old male here for initial evaluation of constipation, bloating, and abdominal pain. He is referred by [facility] in [facility]. PMX Obesity-BMI 34.6 Abdominal pain -right lower quadrant Back pain * SURGICAL HISTORY Tomsillectomy and adenoidectomy ? nasal septoplasty * ALLERGIES Zithromax-rash Environmental, dogs, cats etc * PATHSENSORS LABS: No labs in our system REVIEW OF LABS NOTES AND IMAGING FROM [facility] [employer] ?12.6https://s mamonie.[employer].c om/mp_mobile/[employer] Diagnosticsge s/reports/mp_unifi ed_driver?paramete rs=^MINE^,80620990 .0,328420666.0,270 62331.0,545749316. 0,1121.0,%22MP_REA CH%22,%22../../res ources/UnifiedCont ent%22,%22mp_reach _v5%22,9# 13:45 -- RBC 4.96https://[facility] [employer] m/[employer] /reports/mp_unifie d_driver?parameter s=^MINE^,71297823. 0,580226482.0,2702 5013.0,525407990.0 ,1121.0,%22MP_REAC H%22,%22../../reso urces/UnifiedConte nt%22,%22mp_reach_ v5%22,9# 3 21:43 4.95https://[facility] [employer] m/[employer] /reports/mp_unifie d_driver?parameter s=^MINE^,29027563. 0,401746349.0,2702 5013.0,696334132.0 ,1121.0,%22MP_REAC H%22,%22../../reso urces/UnifiedConte nt%22,%22mp_reach_ v5%22,9# 3 13:45 -- Hgb 14.4https://[facility] [employer].Heal[employer] m/[employer] Diagnosticsges /reports/mp_unifie d_driver?parameter s=^MINE^,75882369. 0,210967573.0,2702 5013.0,994120215.0 ,1121.0,%22MP_REAC H%22,%22../../reso urces/UnifiedConte nt%22,%22mp_reach_ v5%22,9# 3 21:43 14.2https://[facility] [employer].Heal[employer] m/[employer]ges /reports/mp_unifie d_driver?parameter s=^MINE^,36022373. 0,961692099.0,2702 5013.0,668084154.0 ,1121.0,%22MP_REAC H%22,%22../../reso urces/UnifiedConte nt%22,%22mp_reach_ v5%22,9# 3 13:45 -- Hct 43.2https://[facility] [employer]al[employer] m/[employer] /reports/mp_unifie d_driver?parameter s=^MINE^,68041008. 0,464669110.0,2702 5013.0,522937599.0 ,1121.0,%22MP_REAC H%22,%22../../reso urces/UnifiedConte nt%22,%22mp_reach_ v5%22,9# 3 21:43 42.2https://[facility] Gracious Eloise/[employer] /reports/mp_unifie d_driver?parameter s=^MINE^,36960196. 0,836933308.0,2702 5013.0,950557095.0 ,1121.0,%22MP_REAC H%22,%22../../reso urces/UnifiedConte nt%22,%22mp_reach_ v5%22,9# 3 13:45 -- MCV 87.1https://[facility] [employer].Heal[employer] m/[employer]ges /reports/mp_unifie d_driver?parameter s=^MINE^,27170208. 0,297846043.0,2702 5013.0,295357344.0 ,1121.0,%22MP_REAC H%22,%22../../reso urces/UnifiedConte nt%22,%22mp_reach_ v5%22,9# 3 21:43 85.3https://[facility] [employer]al[employer] m/[employer]ges /reports/mp_unifie d_driver?parameter s=^MINE^,09244203. 0,251950738.0,2702 5013.0,683691667.0 ,1121.0,%22MP_REAC H%22,%22../../reso urces/UnifiedConte nt%22,%22mp_reach_ v5%22,9# 3 13:45 -- MCH 29.0https://[facility].HealOr m/mp_mobile/mpages /reports/mp_unifie d_driver?parameter s=^MINE^,00571187. 0,056374371.0,2702 5013.0,446890182.0 ,1121.0,%22MP_REAC H%22,%22../../reso urces/UnifiedConte nt%22,%22mp_reach_ v5%22,9# 3 21:43 28.7https://[facility] Saisei m/mp_mobile/[employer] Diagnosticsges /reports/mp_unifie d_driver?parameter s=^MINE^,66456964. 0,944744616.0,2702 5013.0,109073604.0 ,1121.0,%22MP_REAC H%22,%22../../reso urces/UnifiedConte nt%22,%22mp_reach_ v5%22,9# 3 13:45 -- MCHC 33.3https://[facility].HealOr m/mp_mobile/mpages /reports/mp_unifie d_driver?parameter s=^MINE^,79935741. 0,451087761.0,2702 5013.0,355920159.0 ,1121.0,%22MP_REAC H%22,%22../../reso urces/UnifiedConte nt%22,%22mp_reach_ v5%22,9# 3 21:43 33.6https://[facility].HealOr m/mp_mobile/mpages /reports/mp_unifie d_driver?parameter s=^MINE^,57307511. 0,760588551.0,2702 5013.0,921847565.0 ,1121.0,%22MP_REAC H%22,%22../../reso urces/UnifiedConte nt%22,%22mp_reach_ v5%22,9# 3 13:45 -- Platelet Count 308https://[facility] [employer] /[employer] Diagnosticsges/ reports/mp_unified _driver?parameters =^MINE^,91869880.0 ,590055516.0,42536 013.0,207854814.0, 1121.0,%22MP_REACH %22,%22../../resou rces/UnifiedConten t%22,%22mp_reach_v 5%22,9# 03/20/23 21:43 296https://[facility] [employer] /[employer]/ reports/mp_unified _driver?parameters =^MINE^,83067126.0 ,134946122.0,01422 013.0,063030288.0, 1121.0,%22MP_REACH %22,%22../../resou rces/UnifiedConten t%22,%22mp_reach_v 5%22,9# 01/21/23 13:45 -- RDW-SD 37.2https://[facility] Saisei m/[employer] /reports/mp_unifie d_driver?parameter s=^MINE^,64234564. 0,286778667.0,2702 5013.0,753412974.0 ,1121.0,%22MP_REAC H%22,%22../../reso urces/UnifiedConte nt%22,%22mp_reach_ v5%22,9# 3 21:43 37.1https://[facility] m/Aava [employer] /reports/mp_unifie d_driver?parameter s=^MINE^,40744416. 0,783429776.0,2702 5013.0,184628781.0 ,1121.0,%22MP_REAC H%22,%22../../reso urces/UnifiedConte nt%22,%22mp_reach_ v5%22,9# 3 13:45 -- MPV 10.1https://[employer] m/Aava [employer] /reports/mp_unifie d_driver?parameter s=^MINE^,61118909. 0,177585094.0,2702 5013.0,547611698.0 ,1121.0,%22MP_REAC H%22,%22../../reso urces/UnifiedConte nt%22,%22mp_reach_ v5%22,9# 3 21:43 10.0https://[employer] m/[employer]ava [employer] /reports/mp_unifie d_driver?parameter s=^MINE^,41991485. 0,881417976.0,2702 5013.0,128045680.0 ,1121.0,%22MP_REAC H%22,%22../../reso urces/UnifiedConte nt%22,%22mp_reach_ v5%22,9# 3 13:45 -- Nucleated RBC (Aut omated) 0.0https://[employer] /[employer]/ reports/mp_unified _driver?parameters =^MINE^,99779552.0 ,096446623.0,42080 013.0,453963564.0, 1121.0,%22MP_REACH %22,%22../../resou rces/UnifiedConten t%22,%22mp_reach_v 5%22,9# 03/20/23 21:43 0.5https://[employer] /[employer]/ reports/mp_unified _driver?parameters =^MINE^,84006776.0 ,527473760.0,35422 013.0,580425264.0, 1121.0,%22MP_REACH %22,%22../../resou rces/UnifiedConten t%22,%22mp_reach_v 5%22,9# 01/21/23 13:45 -- Abs. NRBC 0.0https://[facility] lomaxBullitt [facility] /[employer]/ reports/mp_unified _driver?parameters =^MINE^,01758367.0 ,258005283.0,75109 013.0,560381837.0, 1121.0,%22MP_REACH %22,%22../../resou rces/UnifiedConten t%22,%22mp_reach_v 5%22,9# 03/20/23 21:43 0.1https://sma lomaxBullitt Group /[employer]/ reports/[place]_unified _driver?parameters =^MINE^,58349396.0 ,092302802.0,45344 013.0,584962891.0, 1121.0,%22MP_REACH %22,%22../../resou rces/UnifiedConten t%22,%22mp_reach_v 5%22,9# 01/21/23 13:45 -- Abs. Neut 6.8https://sma lomaxBullitt Group /[employer]/ reports/mp_unified _driver?parameters =^MINE^,50827555.0 ,160648589.0,68990 013.0,542854433.0, 1121.0,%22MP_REACH %22,%22../../resou rces/UnifiedConten t%22,%22mp_reach_v 5%22,9# 03/20/23 21:43 ?10.7https://wil campa.[employer].c om/[employer]ava [employer] s/reports/mp_unifi ed_driver?paramete rs=^MINE^,08907257 .0,604695293.0,270 64938.0,819882565. 0,1121.0,%22MP_REA CH%22,%22../../res ources/UnifiedCont ent%22,%22mp_reach _v5%22,9# 13:45 -- Abs. Lymph 3.0https://[employer] /[employer]/ reports/[place] _driver?parameters =^MINE^,11354627.0 ,362168917.0,20442 013.0,664908007.0, 1121.0,%22MP_REACH %22,%22../../resou rces/UnifiedConten t%22,%22mp_reach_v 5%22,9# 03/20/23 21:43 1.2https://[employer] /[employer]/ reports/[place] _driver?parameters =^MINE^,99670005.0 ,309347133.0,52077 013.0,111638988.0, 1121.0,%22MP_REACH %22,%22../../resou rces/UnifiedConten t%22,%22mp_reach_v 5%22,9# 01/21/23 13:45 -- Abs. Dixon 1.1https://[employer] /[employer]/ reports/mp_unified _driver?parameters =^MINE^,90265864.0 ,623453477.0,31676 013.0,132649152.0, 1121.0,%22MP_REACH %22,%22../../resou rces/UnifiedConten t%22,%22mp_reach_v 5%22,9# 03/20/23 21:43 0.6https://[employer] /[employer]/ reports/[place] _driver?parameters =^MINE^,50395676.0 ,058010425.0,63888 013.0,679941229.0, 1121.0,%22MP_REACH %22,%22../../resou rces/UnifiedConten t%22,%22mp_reach_v 5%22,9# 01/21/23 13:45 -- Abs. Eo 0.1https://[employer] /[employer]/ reports/[place] _driver?parameters =^MINE^,28184588.0 ,218263662.0,25359 013.0,982460412.0, 1121.0,%22MP_REACH %22,%22../../resou rces/UnifiedConten t%22,%22mp_reach_v 5%22,9# 03/20/23 21:43 0.0https://[employer] /[employer]/ reports/[place] _driver?parameters =^MINE^,46414288.0 ,827527482.0,47556 013.0,925969695.0, 1121.0,%22MP_REACH %22,%22../../resou rces/UnifiedConten t%22,%22mp_reach_v 5%22,9# 01/21/23 13:45 -- Abs. Baso 0.1https://[employer] /[employer]/ reports/[place] _driver?parameters =^MINE^,68656611.0 ,634311125.0,30855 013.0,978952776.0, 1121.0,%22MP_REACH %22,%22../../resou rces/UnifiedConten t%22,%22mp_reach_v 5%22,9# 03/20/23 21:43 0.1https://[employer] /[employer]/ reports/[place] _driver?parameters =^MINE^,78610279.0 ,668904762.0,65996 013.0,138154226.0, 1121.0,%22MP_REACH %22,%22../../resou rces/UnifiedConten t%22,%22mp_reach_v 5%22,9# 01/21/23 13:45 -- Neut % 60.9https://[facility].HealOr m/mpIntelamobile/[employer]Fire Diagnosticsges /reports/mp_unifie d_driver?parameter s=^MINE^,28773246. 0,786231451.0,2702 5013.0,198746779.0 ,1121.0,%22MP_REAC H%22,%22../../reso urces/UnifiedConte nt%22,%22mp_reach_ v5%22,9# 3 21:43 ?84.7https://[facility]/[employer] s/reports/mp_unifi ed_driver?paramete rs=^MINE^,38168471 .0,503273506.0,270 40272.0,387571853. 0,1121.0,%22MP_REA CH%22,%22../../res ources/UnifiedCont ent%22,%22mp_reach _v5%22,9# 13:45 -- Lymph % 26.7https://[facility].HealOr m/[employer] /reports/mp_unifie d_driver?parameter s=^MINE^,68829516. 0,225668707.0,2702 5013.0,664456087.0 ,1121.0,%22MP_REAC H%22,%22../../reso urces/UnifiedConte nt%22,%22mp_reach_ v5%22,9# 3 21:43 ?9.5https://[facility].[place] m/[employer]ges /reports/mp_unifie d_driver?parameter s=^MINE^,07279048. 0,626728307.0,2702 5013.0,618314304.0 ,1121.0,%22MP_REAC H%22,%22../../reso urces/UnifiedConte nt%22,%22mp_reach_ v5%22,9# 3 13:45 -- Dixon % 10.3https://[employer] sherron.[employer].de m/[employer] /reports/mp_unifie d_driver?parameter s=^MINE^,20111027. 0,838433456.0,2702 5013.0,480026521.0 ,1121.0,%22MP_REAC H%22,%22../../reso urces/UnifiedConte nt%22,%22mp_reach_ v5%22,9# 3 21:43 4.6https://[employer] /[employer]/ reports/mp_unified _driver?parameters =^MINE^,88409211.0 ,162987675.0,56755 013.0,123619669.0, 1121.0,%22MP_REACH %22,%22../../resou rces/UnifiedConten t%22,%22mp_reach_v 5%22,9# 01/21/23 13:45 -- Eos % 1.1https://[employer] /[employer]/ reports/mp_unified _driver?parameters =^MINE^,50578695.0 ,529005610.0,33034 013.0,165232977.0, 1121.0,%22MP_REACH %22,%22../../resou rces/UnifiedConten t%22,%22mp_reach_v 5%22,9# 03/20/23 21:43 0.2https://[employer] /[employer]/ reports/mp_unified _driver?parameters =^MINE^,49365223.0 ,799566142.0,74306 013.0,615593900.0, 1121.0,%22MP_REACH %22,%22../../resou rces/UnifiedConten t%22,%22mp_reach_v 5%22,9# 01/21/23 13:45 -- Baso % 0.7https://[employer] /[employer]/ reports/[place] _driver?parameters =^MINE^,87661867.0 ,652721321.0,60555 013.0,486600186.0, 1121.0,%22MP_REACH %22,%22../../resou rces/UnifiedConten t%22,%22mp_reach_v 5%22,9# 03/20/23 21:43 0.4https://[employer] /[employer]/ reports/[place] _driver?parameters =^MINE^,16386388.0 ,749618974.0,02706 013.0,025864552.0, 1121.0,%22MP_REACH %22,%22../../resou rces/UnifiedConten t%22,%22mp_reach_v 5%22,9# 01/21/23 13:45 -- Imm Gran 0.3https://[employer] /[employer]/ reports/[place] _driver?parameters =^MINE^,02420814.0 ,043764339.0,58539 013.0,628748651.0, 1121.0,%22MP_REACH %22,%22../../resou rces/UnifiedConten t%22,%22mp_reach_v 5%22,9# 03/20/23 21:43 0.6https://[employer] /[employer]/ reports/[place] _driver?parameters =^MINE^,96956744.0 ,036483952.0,09164 013.0,854935778.0, 1121.0,%22MP_REACH %22,%22../../resou rces/UnifiedConten t%22,%22mp_reach_v 5%22,9# 01/21/23 13:45 -- Abs. Imm Gran 0.0https://[employer] /[employer]/ reports/mp_unified _driver?parameters =^MINE^,61784016.0 ,564000023.0,27411 013.0,059251240.0, 1121.0,%22MP_REACH %22,%22../../resou rces/UnifiedConten t%22,%22mp_reach_v 5%22,9# 03/20/23 21:43 0.1https://[employer] /[employer]/ reports/mp_unified _driver?parameters =^MINE^,55588390.0 ,164869941.0,11710 013.0,451399731.0, 1121.0,%22MP_REACH %22,%22../../resou rces/UnifiedConten t%22,%22mp_reach_v 5%22,9# 01/21/23 13:45 -- Hold Blue Top SPECIMEN DISCARDE D AFTER 4 HOURS.h ttps://[employer]/Bio[employer] Diagnosticsges/report s/mp_unified_drive r?parameters=^MINE ^,33816014.0, 4436.0,97399888.0, 748882521.0,1121.0 ,%22MP_REACH%22,%2 2../../resources/U nifiedContent%22,% 22mp_reach_v5%22,9 # 03/20/23 21:43 SPECIMEN DISCARDE D AFTER 4 HOURS.h ttps://[employer] Diagnosticsges/report s/mp_unified_drive r?parameters=^MINE ^,83090968.0, 4436.0,45697218.0, 639637483.0,1121.0 ,%22MP_REACH%22,%2 2../../resources/U nifiedContent%22,% 22mp_reach_v5%22,9 # 01/21/23 13:45 -- -CHEMISTRY (20) Sodium 140https://[employer] /[employer]/ reports/[place]_unified _driver?parameters =^MINE^,17490514.0 ,483328612.0,93703 013.0,572538566.0, 1121.0,%22MP_REACH %22,%22../../resou rces/UnifiedConten t%22,%22mp_reach_v 5%22,9# 03/20/23 21:43 140https://[employer] /[employer]/ reports/[place]_unified _driver?parameters =^MINE^,08156629.0 ,215062467.0,13320 013.0,687578196.0, 1121.0,%22MP_REACH %22,%22../../resou rces/UnifiedConten t%22,%22mp_reach_v 5%22,9# 01/21/23 13:45 -- Potassium 3.6https://[employer] /[employer]/ reports/[place]_unified _driver?parameters =^MINE^,47503580.0 ,190756745.0,48050 013.0,289448035.0, 1121.0,%22MP_REACH %22,%22../../resou rces/UnifiedConten t%22,%22mp_reach_v 5%22,9# 03/20/23 21:43 4.4https://[employer] /[employer]/ reports/[place]_unified _driver?parameters =^MINE^,11504373.0 ,959387604.0,24021 013.0,896098631.0, 1121.0,%22MP_REACH %22,%22../../resou rces/UnifiedConten t%22,%22mp_reach_v 5%22,9# 01/21/23 13:45 -- Chloride 101https://[employer] /[employer]/ reports/mp_unified _driver?parameters =^MINE^,13145238.0 ,672374745.0,00293 013.0,437924573.0, 1121.0,%22MP_REACH %22,%22../../resou rces/UnifiedConten t%22,%22mp_reach_v 5%22,9# 03/20/23 21:43 104https://[employer] /[employer]/ reports/mp_unified _driver?parameters =^MINE^,99070857.0 ,442459509.0,07930 013.0,918320275.0, 1121.0,%22MP_REACH %22,%22../../resou rces/UnifiedConten t%22,%22mp_reach_v 5%22,9# 01/21/23 13:45 -- Bicarbonate Level 24https://[employer]/ [employer]ges/r eports/mp_unified_ escort car driver?parameters= ^MINE^,68477812.0, 803657063.0,792807 13.0,371005326.0,1 121.0,%22MP_REACH% 22,%22../../resour estela/UnifiedContent %22,%22mp_reach_v5 %22,9# 03/20/23 21:43 27https://[employer]/ [employer]ges/r eports/mp_unified_ escort car driver?parameters= ^MINE^,75359933.0, 490191876.0,893138 13.0,159421003.0,1 121.0,%22MP_REACH% 22,%22../../resour estela/UnifiedContent %22,%22mp_reach_v5 %22,9# 01/21/23 13:45 -- Anion Gap 15https://[facility].[address]/ mp_mobile/mpages/r eports/mp_unified_ escort car driver?parameters= ^MINE^,54205912.0, 726869541.0,956030 13.0,436898112.0,1 121.0,%22MP_REACH% 22,%22../../resour estela/UnifiedContent %22,%22mp_reach_v5 %22,9# 03/20/23 21:43 9https://[facility] .[address]/m p_mobile/mpages/re ports/mp_unified_d river?parameters=^ MINE^,21120645.0,1 29900547.0,8287355 3.0,087135490.0,11 21.0,%22MP_REACH%2 2,%22../../resourc es/UnifiedContent% 22,%22mp_reach_v5% 22,9# 01/21/23 1 3:45 -- Glucose Level ?100https://[employer] m/mp_[employer]ges /reports/mp_unifie d_driver?parameter s=^MINE^,71229757. 0,136115826.0,2702 5013.0,701867898.0 ,1121.0,%22MP_REAC H%22,%22../../reso urces/UnifiedConte nt%22,%22mp_reach_ v5%22,9# 3 21:43 ?112https://[employer]olar m/mpTranscend Medical/[employer] Diagnosticsges /reports/mp_unifie d_driver?parameter s=^MINE^,19013041. 0,036960522.0,2702 5013.0,635680509.0 ,1121.0,%22MP_REAC H%22,%22../../reso urces/UnifiedConte nt%22,%22mp_reach_ v5%22,9# 3 13:45 -- BUN 14https://[employer]/ [employer]osticsges/r eports/mp_unified_ escort car driver?parameters= ^MINE^,82958424.0, 867968786.0,489584 13.0,804907457.0,1 121.0,%22MP_REACH% 22,%22../../resour estela/UnifiedContent %22,%22mp_reach_v5 %22,9# 03/20/23 21:43 14https://[employer]/ [employer]/r eports/mp_unified_ escort car driver?parameters= ^MINE^,01477628.0, 146063985.0,405395 13.0,668291545.0,1 121.0,%22MP_REACH% 22,%22../../resour estela/UnifiedContent %22,%22mp_reach_v5 %22,9# 01/21/23 13:45 -- Creatinine-Blood 1.2https://[facility] hospitalsherron lomaxBullitt Group /[employer]/ reports/mp_unified _driver?parameters =^MINE^,31710673.0 ,397794768.0,39420 013.0,561409183.0, 1121.0,%22MP_REACH %22,%22../../resou rces/UnifiedConten t%22,%22mp_reach_v 5%22,9# 03/20/23 21:43 ?1.3https://[facility] aea.[employer].de m/[place] /reports/mp_unifie d_driver?parameter s=^MINE^,87871580. 0,932576593.0,2702 5013.0,252198909.0 ,1121.0,%22MP_REAC H%22,%22../../reso urces/UnifiedConte nt%22,%22mp_reach_ v5%22,9# 3 13:45 -- Estimated GFR Ted velásquez *82https://[employer] /[employer]/ reports/mp_unified _driver?parameters =^MINE^,08082602.0 ,701661132.0,42803 013.0,624640055.0, 1121.0,%22MP_REACH %22,%22../../resou rces/UnifiedConten t%22,%22mp_reach_v 5%22,9# 03/20/23 21:43 *74https://[employer] /[employer]/ reports/mp_unified _driver?parameters =^MINE^,89652901.0 ,452469004.0,84983 013.0,252374509.0, 1121.0,%22MP_REACH %22,%22../../resou rces/UnifiedConten t%22,%22mp_reach_v 5%22,9# 01/21/23 13:45 -- Calcium 9.4https://[employer] /[employer]/ reports/mp_unified _driver?parameters =^MINE^,36988515.0 ,612753765.0,19298 013.0,584074301.0, 1121.0,%22MP_REACH %22,%22../../resou rces/UnifiedConten t%22,%22mp_reach_v 5%22,9# 03/20/23 21:43 *10.3https://wil campa.[employer]. om/[employer]/reports/mp_unifi ed_driver?paramete rs=^MINE^,79409345 .0,016349205.0,270 13620.0,249801148. 0,1121.0,%22MP_REA CH%22,%22../../res ources/UnifiedCont ent%22,%22mp_reach _v5%22,9# 13:45 -- Protein, Total 7.5https://[employer] /[employer]/ reports/mp_unified _driver?parameters =^MINE^,88081476.0 ,289444087.0,15609 013.0,777489334.0, 1121.0,%22MP_REACH %22,%22../../resou rces/UnifiedConten t%22,%22mp_reach_v 5%22,9# 03/20/23 21:43 -- -- Albumin 4.7https://[employer] /[employer]/ reports/mp_unified _driver?parameters =^MINE^,89072734.0 ,251325424.0,88516 013.0,153744535.0, 1121.0,%22MP_REACH %22,%22../../resou rces/UnifiedConten t%22,%22mp_reach_v 5%22,9# 03/20/23 21:43 -- -- AG Ratio 1.7https://[employer] /[employer]/ reports/mp_unified _driver?parameters =^MINE^,39891005.0 ,093359053.0,88508 013.0,096631197.0, 1121.0,%22MP_REACH %22,%22../../resou rces/UnifiedConten t%22,%22mp_reach_v 5%22,9# 03/20/23 21:43 -- -- Alkaline Phosphata se 82https://[employer]/ [employer]/r eports/mp_unified_ escort car driver?parameters= ^MINE^,79277831.0, 127528895.0,274491 13.0,067073214.0,1 121.0,%22MP_REACH% 22,%22../../resour estela/UnifiedContent %22,%22mp_reach_v5 %22,9# 03/20/23 21:43 -- -- Lipase 27https://[employer]/ [employer]/r eports/mp_unified_ escort car driver?parameters= ^MINE^,51468396.0, 561853331.0,928551 13.0,295096281.0,1 121.0,%22MP_REACH% 22,%22../../resour estela/UnifiedContent %22,%22mp_reach_v5 %22,9# 03/20/23 21:43 -- -- AST (SGOT) 17https://[employer]/ [employer]/r eports/mp_unified_ escort car driver?parameters= ^MINE^,04380242.0, 003537100.0,143028 13.0,958715848.0,1 121.0,%22MP_REACH% 22,%22../../resour estela/UnifiedContent %22,%22mp_reach_v5 %22,9# 03/20/23 21:43 -- -- ALT (SGPT) 18https://[employer]/ [employer]/r eports/mp_unified_ escort car driver?parameters= ^MINE^,03047869.0, 457301555.0,466349 13.0,833233647.0,1 121.0,%22MP_REACH% 22,%22../../resour estela/UnifiedContent %22,%22mp_reach_v5 %22,9# 03/20/23 21:43 -- -- Bilirubin, Total 0.3https://[employer] /[employer]/ reports/mp_unified _driver?parameters =^MINE^,64421964.0 ,038092497.0,15195 013.0,298305810.0, 1121.0,%22MP_REACH %22,%22../../resou es/UnifiedConten t%22,%22mp_reach_v 5%22,9# 03/20/23 21:43 -- -- Lactate 0.9https://[employer] /[employer]/mpages/ reports/mp_unified _driver?parameters =^MINE^,33532632.0 ,707273828.0,86780 013.0,792477462.0, 1121.0,%22MP_REACH %22,%22../../resou es/UnifiedConten t%22,%22mp_reach_v 5%22,9# 03/20/23 21:43 -- -- Hold Gel Top SPECIMEN DISCARDE D AFTER 1 WEEKhtt ps://[employer]/viaForensicsmobi le/BioFire Diagnosticsges/reports/ mp_unified_driver? parameters=^MINE^, [id number],[id number] 36.0,97599790.0,30 7223727.0,1121.0,% 22MP_REACH%22,%22. ./../resources/Uni fiedContent%22,%22 mp_reach_v5%22,9# 03/20/23 21:43 SPECIMEN DISCARDE D AFTER 1 WEEKhtt ps://[employer] le/BioFire Diagnosticsges/reports/ mp_unified_driver? parameters=^MINE^, 01721047.0,6443704 36.0,99710789.0,30 3926102.0,1121.0,% 22MP_REACH%22,%22. ./../resources/Uni fiedContent%22,%22 mp_reach_v5%22,9# 01/21/23 13:45 -- -URINE STUDIES (14) Appear/Color, Urin e COLORLESShttps:/ /[employer]_mobile/m pages/reports/mp_u nified_driver?para meters=^MINE^,2691 8542.0,758211824.0 ,49121532.0,085132 571.0,1121.0,%22MP _REACH%22,%22../.. /resources/Unified Content%22,%22mp_r each_v5%22,9# 21:30 -- -- Clarity CLEARhttps://leny campa.[employer] /[employer] s/reports/[place]_Ethertronics ed_driver?paramete rs=^MINE^,36573952 .0,158633119.0,270 46844.0,778071078. 0,1121.0,%22MP_REA CH%22,%22../../res ources/UnifiedCont ent%22,%22mp_reach _v5%22,9# 21:30 -- -- Specific [place], Urine 1.010https://leny campa.[employer] /[employer]/BioFire Diagnosticsge s/reports/mp_Ethertronics ed_driver?paramete rs=^MINE^,15950362 .0,681765585.0,270 21268.0,091106947. 0,1121.0,%22MP_REA CH%22,%22../../res ources/UnifiedCont ent%22,%22mp_reach _v5%22,9# 21:30 -- -- pH, Urine 7.0https://antonio lomax.[address] /[employer]/BioFire Diagnosticsges/ reports/mp_unified _driver?parameters =^MINE^,19593546.0 ,249455104.0,78125 013.0,084848928.0, 1121.0,%22MP_REACH %22,%22../../resou rces/UnifiedConten t%22,%22mp_reach_v 5%22,9# 03/20/23 21:30 -- -- Albumin, Urine NEGATIVEhttps:// kongsmjoann.[employer]/mp ages/reports/mp_un ified_driver?sharif eters=^MINE^,57078 542.0,310357187.0, 65012197.0,4738301 71.0,1121.0,%22MP_ REACH%22,%22../../ resources/[employer] ontent%22,%22mp_re ach_v5%22,9# 21:30 -- -- Glucose, Urine NEGATIVEhttps:// Intentiosmaea.[employer]/Issue/reports/mp_un ified_driver?sharif eters=^MINE^,72044 542.0,572962594.0, 21832001.0,8240687 71.0,1121.0,%22MP_ REACH%22,%22../../ resources/[employer] ontent%22,%22mp_re ach_v5%22,9# 21:30 -- -- Ketones, Urine NEGATIVEhttps:// bhsmaea.[employer]/Issue/reports/mp_un ified_driver?sharif eters=^MINE^,87472 542.0,600481260.0, 92877799.0,6346457 71.0,1121.0,%22MP_ REACH%22,%22../../ resources/[employer] ontent%22,%22mp_re ach_v5%22,9# 21:30 -- -- Bilirubin, Urine NEGATIVEhttps:// Intentiosmaea.[employer]/Issue/reports/mp_un ified_driver?sharif eters=^MINE^,94952 542.0,742840824.0, 76521071.0,0732199 71.0,1121.0,%22MP_ REACH%22,%22../../ resources/[employer] ontent%22,%22mp_re ach_v5%22,9# 21:30 -- -- Hemoglobin, Urine NEGATIVEhttps:// bhsmaeaInnova.com/Aava [employer]/[place] ages/reports/mp_un ified_driver?sharif eters=^MINE^,66703 542.0,907695651.0, 92619829.0,9471492 71.0,1121.0,%22MP_ REACH%22,%22../../ resources/UnifiedC ontent%22,%22mp_re ach_v5%22,9# 21:30 -- -- Nitrite, Urine NEGATIVEhttps:// [employer]ava [employer]/mp ages/reports/mp_un ified_driver?sharif eters=^MINE^,36299 542.0,905681171.0, 46509825.0,1660149 71.0,1121.0,%22MP_ REACH%22,%22../../ resources/UnifiedC ontent%22,%22mp_re ach_v5%22,9# 21:30 -- -- Leukocyte, Urine NEGATIVEhttps:// [employer]/viaForensicsmobile/mp ages/reports/mp_un ified_driver?sharif eters=^MINE^,21481 542.0,043545677.0, 06999426.0,0794319 71.0,1121.0,%22MP_ REACH%22,%22../../ resources/UnifiedC ontent%22,%22mp_re ach_v5%22,9# 21:30 -- -- Urobilinogen NORMALhttps://[employer].Breadtrip/[place]_Baojia.com/mpag es/reports/mp_unif ied_driver?paramet ers=^MINE^,0554028 2.0,864948999.0,27 794598.0,621566669 .0,1121.0,%22MP_RE ACH%22,%22../../re sources/UnifiedCon tent%22,%22mp_reac h_v5%22,9# 03/20 21:30 -- -- Hold Urine Culture Testing available 48 hours from jonathan pimentel of collection.h ttps://C[employer]/mp_mo mirella/raghavendra/report s/mp_unified_drive r?parameters=^MINE ^,83518358.0,31496 4436.0,28647806.0, 555367695.0,1121.0 ,%22MP_REACH%22,%2 2../../resources/U nifiedContent%22,% 22mp_reach_v5%22,9 # 03/20/23 21:30 -- CT ABDOMEN AND PELVIS 03/21/23 FINDINGS: Holter Scanning Technician View Findings, Lines and Tubes: None. Visualized Chest: Lung bases are clear. No pleural effusion. The heart is normal in size. No pericardial effusion. Diaphragm: Normal. Liver: Normal. Gallbladder: No CT evidence of gallbladder pathology. Bile ducts: No biliary ductal dilation. Spleen: Normal. Pancreas: Normal. Adrenal glands: Normal. Kidneys and ureters: No hydronephrosis, stones, or suspicious masses. Bladder: Normal. Reproductive organs: Normal prostate gland and seminal vesicles. Stomach, small bowel, and large bowel: Normal. Appendix: Normal. Peritoneum and retroperitoneum: No ascites or pneumoperitoneum. No omental or mesenteric lesions. Lymph nodes: Several borderline enlarged inguinal lymph nodes measuring up to 1.0 cm. No suspicious abdominopelvic adenopathy. Blood vessels: Normal. No aneurysm. No evidence of venous thrombosis. Abdominal and pelvic wall: Unremarkable. Bones: No acute abnormality. No suspicious bone lesion. IMPRESSION: No acute process in the abdomen and pelvis. Normal appendix. TODAY'S VISIT APPARENTLY, in the PCP note mentions that he was evaluated at an emergency department of on named location and had a CT scan lab work not concerning for any severe process such as appendicitis colitis etc. This was at [facility]. (I discovered these reports after the actual visit and include them in the record). The problem started in late Jan with a feeling of discomfort as a pushing pain in the RLQ. He was experiencing CIC at the time, he felt like he had gas trapping, I felt like I had to fart and I couldn't. He does drink a lot of seltzer water throughout the day so we could be overloading his system with gas. We did discuss this together. He was then referred to PT for a possible weakened abdominal wall, but this was not a problem and then he was put on miralax and omeprazole. The CIC waxed and waned, then he was put on abx and this really cleared me out. However the CIC is returning with the lower abdominal bloating. This, despite having full BM's sometimes twice a day. He does have frequent but intermittent feeling of incomplete evacuation. He has some days when he feels quite well and can pass gas, and some when he does not. He eats a lot of fiber including fiber in shakes and greens. His general fiber level has not changed, he drinks a lot of fluids/water in a day. 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 There is a FHX of colon polyps in 50's in maternal grandmother and father. [facility] Surgical History Hx of tonsillectomy H/O adenoidectomy Family History Maternal Grandfather Colon polyps Heart attack Paternal Grandfather Colon polyps Social History Alcohol intake: current Alcohol intake frequency: a few times a week Alcohol type: beer and wine Patient Tobacco Use Status: Former Tobacco user Quit Date: 2021 e-Cigarette/Vaping Use: Former Use Date or number of years quit: Quit 2021 Review of Systems Const Denies fatigue, Denies fever(s), Denies night sweats, Denies poor appetite and Denies weight loss ENT Reports Normal hearing present, Denies dental pain, Denies dysphagia, Denies hearing loss, Denies mouth pain, Denies odynophagia, Denies throat swelling, Denies tongue swelling and Reports other (Dentition adequate) Card Reports no additional complaints Resp Reports no additional complaints GI Details: Reports abdominal pain, Denies melena, Reports bloating, Denies hematochezia, Reports change in bowel habits, Reports constipation, Denies GI cramping, Denies dysphagia, Denies excessive flatus, Denies early satiety, Denies heartburn, Denies diarrhea, Denies nausea, Denies odynophagia, Denies vomiting and Denies hematemesis Musc Reports back pain Skin/Breast Denies pruritus, Denies lesions, Denies rash and Denies jaundice Neuro Reports Normal hearing present and Denies Abnormal speech present Endo Denies fatigue Aller/Immun Denies throat swelling and Denies tongue swelling Physical Exam Vital Signs: Last Vital Signs Pulse 77 07/01/23 15:30 BP 131/61 07/01/23 15:30 BMI result Body Mass Index 33.3 Const General: cooperative, no acute distress, well developed and well groomed Nutritional Appearance: well nourished and overweight Orientation/consciousness: oriented to person, oriented to place and oriented to time Limitations: No language barrier HEENT Head: Yes normocephalic and Yes atraumatic Eyes General: appearance normal, both eyes and all related structures Pupils: Equal, round and reactive pupils present Neck Neck: Yes normal visual inspection and Yes no lymphadenopathy Thyroid: Thyroid normal Resp Effort & Inspection: normal respiratory effort and able to speak in complete sentences Auscultation: clear to auscultation bilaterally Cardio Rate: regular rate Rhythm: regular rhythm Heart sounds: Normal, physiologic split S2 sound present Peripheral pulses: radial pulses present and posterior tibial pulses present GI Inspection: No distended, No Abdominal panniculus present, Yes obesity and Yes striae Palpation (GI): Soft to palpation, nontender, no guarding, not rigid and No hepatosplenomegaly present Percussion: Yes normal to percussion Auscultation: normal bowel sounds Rectal Exam - Male: Yes deferred Skin General skin exam: no rashes or lesions noted, turgor normal, skin not dry, no jaundice, No spider nevi and no striae Rashes: no rashes Nails: normal Neuro General: oriented to person, oriented to place and oriented to time Cranial nerves: Yes Equal, round and reactive pupils present and Yes Normal hearing present Speech: No Abnormal speech present Extrem General: Yes normal to inspection, No clubbing, No cyanosis and No edema Psych Appearance: grossly normal and well kempt Mental Status: mental status grossly normal Speech and movement: Normal speech and movement present Affect: normal affect Attitude: cooperative Thought process: Normal thought process present and not confabulating Thought content: Normal thought content present Insight: Fair insight present (Psych) Judgement: Fair judgement present (Psych) Assessment & Plan Assessment & Plan (1) Abdominal pain: Code(s): R10.9 - Unspecified abdominal pain (2) Chronic idiopathic constipation: Code(s): K59.04 - Chronic idiopathic constipation Plan APPARENTLY, in the PCP note mentions that he was evaluated at an emergency department of on named location and had a CT scan lab work not concerning for any severe process such as appendicitis colitis etc. This was at [facility]. (I discovered these reports after the actual visit and include them in the record). The problem started in late Jan with a feeling of discomfort as a pushing pain in the RLQ. He was experiencing CIC at the time, he felt like he had gas trapping, I felt like I had to fart and I couldn't. He does drink a lot of seltzer water throughout the day so we could be overloading his system with gas. We did discuss this together. He was then referred to PT for a possible weakened abdominal wall, but this was not a problem and then he was put on miralax and omeprazole. The CIC waxed and waned, then he was put on abx and this really cleared me out. However the CIC is returning with the lower abdominal bloating. This, despite having full BM's sometimes twice a day. He does have frequent but intermittent feeling of incomplete evacuation. He has some days when he feels quite well and can pass gas, and some when he does not. He eats a lot of fiber including fiber in shakes and greens. His general fiber level has not changed, he drinks a lot of fluids/water in a day. 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 There is a FHX of colon polyps in 50's in maternal grandmother and father. Orders: Orders Comprehensive Met. Panel 07/01/23 R10.9 - Unspecified abdominal pain Complete Blood Count Auto Diff 07/01/23 R10.9 - Unspecified abdominal pain TSH reflex Free T4 07/01/23 K59.04 - Chronic idiopathic constipation Medications: New simethicone (Gas Relief (simethicone)) 125 mg PO TID PRN 90 tabs 3RF abdominal distention Coding Level of Care Code New Pt Level 3 (75732) Diagnoses Abdominal pain R10.9 Chronic idiopathic constipation K59.04
[2023-07-01 15:30] VITALS: BP 131/61; PULSE 77; BMI 33.3
== END 2023-07-01 16:34 | disposition home or self-care (01) ==
PROVIDERS: PCP Student in an Organized Health Care Education/Training Program; Visit Provider Nurse Practitioner
DX: R10.9 Unspecified abdominal pain (principal); K59.04 Chronic idiopathic constipation
CPT/HCPCS: 99203

== ENCOUNTER 2023-07-24 14:42 | Outpatient (AMB) | payer OTHER, SELFPAY ==
--- NOTE | 2023-07-24 14:48 | A.OFFVIS_ITS ---
Intake Vital Signs 07/24/23 14:54 Height 5 ft 10 in Weight 235 lb 14.314 oz BMI 33.8 BP 139/68 Blood Pressure Location Lt brachial Position Sitting Pulse 89 Intake Visit Reasons: 3 week follow up Intake Note: Henrry presents in the office as a 3 week follow up. CC: He states that he is not having any new concerns. Quantitative Researcher Required: No Allergies azithromycin [From Zithromax] Allergy (Severe, Verified 07/24/23 14:55) Rash Medication List - Last Reconciled 07/24/23 by DELMY Byrd-George bisacodyl (Dulcolax (bisacodyl)) 10 mg (2 x 5 mg) PO BEDTIME 2 days Lactobac 40-Bifido 3-S.thermop 100 billion cell (Probiotic) caps PO multivitamin 1 tab PO DAILY omega 6-nte-gqu-fish oil 100-160-1,000 mg (Fish Oil) 1 cap PO DAILY peg 3350-electrolytes 236-22.74-6.74 -5.86 gram (Golytely) 240 mL PO Q10M 1 day polyethylene glycol 3350 (Miralax) 17 grams PO DAILY sennosides (Senna Laxative) 17.2 mg (2 x 8.6 mg) PO BEDTIME simethicone (Gas Relief (simethicone)) 125 mg PO TID PRN HPI 3 week follow up HPI Details Assessment & Plan (1) Abdominal pain: Code(s): R10.9 - Unspecified abdominal pain (2) Chronic idiopathic constipation: Code(s): K59.04 - Chronic idiopathic constipation Plan APPARENTLY, in the PCP note mentions that he was evaluated at an emergency department of on named location and had a CT scan lab work not concerning for any severe process such as appendicitis colitis etc. This was at [facility]. (I discovered these reports after the actual visit and incl ude them in the record). The problem started in late Jan with a feeling of discomfort as a pushing pain in the RLQ. He was experiencing CIC at the time, he felt like he had gas trapping, I felt like I had to fart and I couldn't. He does drink a lot of seltzer water throughout the day so we could be overloading his system with gas. We did discuss this together. He was then referred to PT for a possible weakened abdominal wall, but this was not a problem and then he was put on miralax and omeprazole. The CIC waxed and waned, then he was put on abx and this really cleared me out. However the CIC is returning with the lower abdominal bloating. This, despite having full BM's sometimes twice a day. He does have frequent but intermittent feeling of incomplete evacuation. He has some days when he feels quite well and can pass gas, and some when he does not. He eats a lot of fiber including fiber in shakes and greens. His general fiber level has not changed, he drinks a lot of fluids/water in a day. 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 There is a FHX of colon polyps in 50's in maternal grandmother and father. Orders: Orders Comprehensive Met. Panel 07/01/23 R10.9 - Unspecifie d abdominal pain Complete Blood Cou nt Auto Diff 07/01/23 R10.9 - Unspecifie d abdominal pain TSH reflex Free T4 07/01/23 K59.04 - Chronic i diopathic constipa tion Medications: New simethicone (Gas R elief (simethicone )) 125 mg PO TID PRN 90 tabs 3RF abdom inal distention LABS: Laboratory Tests 07/01/23 16:52 WBC 11.7 H Hgb 15.1 Hct 44.4 Plt Count 299 Estimated GFR > 60 Total Bilirubin 0.4 AST 24 ALT 30 Alkaline Phosphata se 78 TSH 0.72 TODAY'S VISIT He did receive the simethicone, and he is passing gas better, and it has helped the subjective feeling of bloating. His BM's still are manifesting some incomplete evacuation. He will have this feeling in the AM and then have to have another later in the day. This was not well effected with Mirlax. His stool also were never hard, always softer. At this point I am ordering a colonoscopy to further explore his symptoms. There are no prior problems with anesthesia or sedation. He denies any cardiac or respiratory problems. There are no infectious disease problems. There is a family history of colon polyps but no colorectal cancer. ROV 6 weeks. Since it sounds like he has not getting affective emptying of his bowels I am going to try him on some senna in the meantime [facility] Surgical History Hx of tonsillectomy H/O adenoidectomy Family History Maternal Grandfather Colon polyps Heart attack Paternal Grandfather Colon polyps Social History Alcohol intake: current Alcohol intake frequency: a few times a week Alcohol type: beer and wine Patient Tobacco Use Status: Former Tobacco user Quit Date: 2021 e-Cigarette/Vaping Use: Former Use Date or number of years quit: Quit 2021 Review of Systems Const Denies fatigue, Denies fever(s), Denies night sweats, Denies poor appetite and Denies weight loss ENT Reports Normal hearing present, Denies dental pain, Denies dysphagia, Denies hearing loss, Denies mouth pain, Denies odynophagia, Denies throat swelling, Denies tongue swelling and Reports other (Dentition adequate) Card Reports no additional complaints Resp Reports no additional complaints GI Details: Denies abdominal pain, Denies melena, Reports bloating, Denies hematochezia, Reports constipation, Denies GI cramping, Denies dysphagia, Denies excessive flatus, Denies early satiety, Denies heartburn, Denies diarrhea, Denies nausea, Denies odynophagia, Denies vomiting and Denies hematemesis Skin/Breast Denies pruritus, Denies lesions, Denies rash and Denies jaundice Neuro Reports Normal hearing present and Denies Abnormal speech present Endo Denies fatigue Aller/Immun Denies throat swelling and Denies tongue swelling Physical Exam Vital Signs: Last Vital Signs Pulse 89 07/24/23 14:54 BP 139/68 07/24/23 14:54 BMI result Body Mass Index 33.8 Const General: cooperative, no acute distress, well developed and well groomed Nutritional Appearance: well nourished and overweight Orientation/consciousness: oriented to person, oriented to place and oriented to time Limitations: No language barrier HEENT Head: Yes normocephalic and Yes atraumatic Eyes General: appearance normal, both eyes and all related structures Pupils: Equal, round and reactive pupils present Neck Neck: Yes normal visual inspection and Yes no lymphadenopathy Thyroid: Thyroid normal Resp Effort & Inspection: normal respiratory effort and able to speak in complete sentences Auscultation: clear to auscultation bilaterally Cardio Rate: regular rate Rhythm: regular rhythm Heart sounds: Normal, physiologic split S2 sound present Peripheral pulses: radial pulses present and posterior tibial pulses present GI Inspection: No distended, No Abdominal panniculus present and Yes obesity Palpation (GI): Soft to palpation, nontender, no guarding, not rigid and No hepatosplenomegaly present Percussion: Yes normal to percussion Auscultation: normal bowel sounds Rectal Exam - Male: Yes deferred Skin General skin exam: no rashes or lesions noted, turgor normal, skin not dry, no jaundice, No spider nevi and no striae Rashes: no rashes Nails: normal Neuro General: oriented to person, oriented to place and oriented to time Cranial nerves: Yes Equal, round and reactive pupils present and Yes Normal hearing present Speech: No Abnormal speech present Extrem General: Yes normal to inspection, No clubbing, No cyanosis and No edema Psych Appearance: grossly normal and well kempt Mental Status: mental status grossly normal Speech and movement: Normal speech and movement present Affect: normal affect Attitude: cooperative Thought process: Normal thought process present and not confabulating Thought content: Normal thought content present Insight: Fair insight present (Psych) Judgement: Fair judgement present (Psych) Assessment & Plan Assessment & Plan (1) Chronic idiopathic constipation: Code(s): K59.04 - Chronic idiopathic constipation (2) Change in stool: Code(s): R19.5 - Other fecal abnormalities (3) Family history of polyps in the colon: Comment: both mother and father Code(s): Z83.719 - Family history of colon polyps, unspecified (4) Pre-op examination: Code(s): Z01.818 - Encounter for other preprocedural examination Plan He did receive the simethicone, and he is passing gas better, and it has helped the subjective feeling of bloating. His BM's still are manifesting some incomplete evacuation. He will have this feeling in the AM and then have to have another later in the day. This was not well effected with Mirlax. His stool also were never hard, always softer. At this point I am ordering a colonoscopy to further explore his symptoms. There are no prior problems with anesthesia or sedation. He denies any cardiac or respiratory problems. There are no infectious disease problems. There is a family history of colon polyps but no colorectal cancer. ROV 6 weeks. Since it sounds like he has not getting affective emptying of his bowels I am going to try him on some senna in the meantime Orders: Orders Colonoscopy - GI Use Only 07/24/23 K59.04 - Chronic idiopathic constipation, R19.5 - Other fecal abnormalities, Z83.719 - Family history of colon polyps, unspecified Medications: New peg 3350-electrolytes 236-22.74-6.74 -5.86 gram (Golytely) until fecal effluent is clear; do not exceed a total volume of 2,000 mL 240 mL PO Q10M 4,000 mL 0RF 1 day Z12.11 - Encounter for screening for malignant neoplasm of colon bisacodyl (Dulcolax (bisacodyl)) 10 mg (2 x 5 mg) PO BEDTIME 4 tabs 0RF 2 days sennosides (Senna Laxative) 17.2 mg (2 x 8.6 mg) PO BEDTIME 60 tabs 6RF Coding Level of Care Code Est Pt Level 4 (00500) Diagnoses Chronic idiopathic constipation K59.04 Change in stool R19.5 Family history of polyps in the colon Z83.719 Pre-op examination Z01.818
[2023-07-24 14:54] VITALS: BP 139/68; PULSE 89; BMI 33.8
== END 2023-07-24 15:30 | disposition home or self-care (01) ==
PROVIDERS: PCP Student in an Organized Health Care Education/Training Program; Visit Provider Nurse Practitioner
DX: K59.04 Chronic idiopathic constipation (principal); R19.5 Other fecal abnormalities; Z83.719 Family history of colon polyps, unspecified; Z01.818 Encounter for other preprocedural examination
CPT/HCPCS: 99214

== ENCOUNTER → 2023-07-24 14:42 | Outpatient (BNVA) | payer OTHER, SELFPAY | PROVIDERS: PCP Student in an Organized Health Care Education/Training Program; Visit Provider Nurse Practitioner ==

== ENCOUNTER 2023-10-23 14:20 | Outpatient (REF) | payer OTHER, SELFPAY ==
[2023-10-24 14:45] LABS: H Pylori Breath Test Negative (Negative)
== END 2023-10-23 14:21 | disposition home or self-care (01) ==
LOC: HO.LAB 14:20
PROVIDERS: PCP Student in an Organized Health Care Education/Training Program; Visit Provider Nurse Practitioner
DX: K21.9 Gastro-esophageal reflux disease without esophagitis (principal)
CPT/HCPCS: 36415; 83013; 86003

== ENCOUNTER 2023-10-23 14:20 | Outpatient (AMB) | payer OTHER, SELFPAY ==
--- NOTE | 2023-10-23 14:26 | A.OFFVIS_ITS ---
Vital Signs 10/23/23 14:27 Height 5 ft 10 in Weight 237 lb 10.533 oz BMI 34.1 BP 108/60 Blood Pressure Location Rt brachial Position Sitting Pulse 64 Intake Visit Reasons: Follow up 6 weeks Intake Note: Henrry presents to in office visit today in 6 weeks follow up of [facility]. CC: Patient reports constipation on and off, nausea after eating certain foods, and every now and then abdominal cramps. He also c/o acid reflux and heartburn usually about 2 hours after eating and at night. Per patient he has noticed that fatty and sugary foods worsen acid reflux symptoms. [employer] Required: No Accompanied by: Self / Same As Patient Allergies azithromycin [From Zithromax] Allergy (Severe, Verified 10/23/23 14:28) Rash HPI HPI Follow up 6 weeks: Details: Assessment & Plan (1) Chronic idiopathic constipation: Code(s): K59.04 - Chronic idiopathic constipation (2) Change in stool: Code(s): R19.5 - Other fecal abnormalities (3) Family history of polyps in the colon: Comment: both mother and father Code(s): Z83.719 - Family history of colon polyps, unspecified (4) Pre-op examination: Code(s): Z01.818 - Encounter for other preprocedural examination Plan He did receive the simethicone, and he is passing gas better, and it has helped the subjective feeling of bloating. His BM's still are manifesting some incomplete evacuation. He will have this feeling in the AM and then have to have another later in the day. This was not well effected with Mirlax. His stool also were never hard, always softer. At this point I am ordering a colonoscopy to further explore his symptoms. There are no prior problems with anesthesia or sedation. He denies any cardiac or respiratory problems. There are no infectious disease problems. There is a family history of colon polyps but no colorectal cancer. ROV 6 weeks. Since it sounds like he has not getting affective emptying of his bowels I am going to try him on some senna in the meantime Orders: Orders Colonoscopy - GI Use Only 07/24/23 K59.04 - Chronic idiopathic constipation, R19.5 - Other fecal abnormalities, Z83.719 - Family history of colon polyps, unspecified Medications: New peg 3350-electrolytes 236-22.74-6.74 -5.86 gram (Golytely) until fecal effluent is clear; do not exceed a total volume of 2,000 mL 240 mL PO Q10M 4,000 mL 0RF 1 day Z12.11 - Encounter for screening for malignant neoplasm of colon bisacodyl (Dulcolax (bisacodyl)) 10 mg (2 x 5 mg) PO BEDTIME 4 tabs 0RF 2 days sennosides (Senna Laxative) 17.2 mg (2 x 8.6 mg) PO BEDTIME 60 tabs 6RF COLONOSCOPY Scheduled for 11/25/2023 BIOPSY TODAY'S VISIT Better BM's with 1 senna a night, even after running out and less bloating. Easier to pass gas. Now GERD is worse. Worse with fats and sugars and when he lays down at night. We spent time going over the pathophysiology of GERD and the various causes that Dr. Zepeda. Since he seems see moving his bowels well I think we need to expand our investigation to see if there is any reversible underlying causes. Start protonix 40mg bid, give GERD diet, barium swallow, US, HP breath test, RAST allergy (pt request). Reviewed colonoscopy prep keep 12/08 [facility] Surgical History Hx of tonsillectomy H/O adenoidectomy Family History Maternal Grandfather Colon polyps Heart attack Paternal Grandfather Colon polyps Social History Alcohol intake: current Alcohol intake frequency: a few times a week Alcohol type: beer and wine Patient Tobacco Use Status: Former Tobacco user e-Cigarette/Vaping Use: Former Use Date or number of years quit: Quit 2021 Review of Systems Const Denies fatigue, Denies fever(s), Denies night sweats, Denies poor appetite and Denies weight loss ENT Reports Normal hearing present, Denies dental pain, Denies dysphagia, Denies hearing loss, Denies mouth pain, Denies odynophagia, Denies throat swelling, Denies tongue swelling and Reports other (Dentition adequate) Card Reports no additional complaints Resp Reports no additional complaints GI Details: Denies abdominal pain, Denies melena, Reports bloating, Denies hematochezia, Reports constipation, Denies GI cramping, Denies dysphagia, Denies excessive flatus, Denies early satiety, Reports heartburn, Denies diarrhea, Reports nausea, Denies odynophagia, Denies vomiting and Denies hematemesis Skin/Breast Denies pruritus, Denies lesions, Denies rash and Denies jaundice Neuro Reports Normal hearing present and Denies Abnormal speech present Endo Denies fatigue Aller/Immun Denies throat swelling and Denies tongue swelling Physical Exam Vital Signs: Last Vital Signs Pulse 64 10/23/23 14:27 BP 108/60 10/23/23 14:27 BMI result Body Mass Index 34.1 Const General: cooperative, no acute distress, well developed and well groomed Nutritional Appearance: well nourished and obese Orientation/consciousness: oriented to person, oriented to place and oriented to time Limitations: No language barrier HEENT Head: Yes normocephalic and Yes atraumatic Eyes General: appearance normal, both eyes and all related structures Pupils: Equal, round and reactive pupils present Neck Neck: Yes normal visual inspection and Yes no lymphadenopathy Thyroid: Thyroid normal Resp Effort & Inspection: normal respiratory effort and able to speak in complete sentences Auscultation: clear to auscultation bilaterally Cardio Rate: regular rate Rhythm: regular rhythm Heart sounds: Normal, physiologic split S2 sound present Peripheral pulses: radial pulses present and posterior tibial pulses present GI Inspection: No distended, No Abdominal panniculus present and Yes obesity Palpation (GI): Soft to palpation, nontender, no guarding, not rigid and No hepatosplenomegaly present Percussion: Yes normal to percussion Auscultation: normal bowel sounds Rectal Exam - Male: Yes deferred Skin General skin exam: no rashes or lesions noted, turgor normal, skin not dry, no jaundice, No spider nevi and no striae Rashes: no rashes Nails: normal Neuro General: oriented to person, oriented to place and oriented to time Cranial nerves: Yes Equal, round and reactive pupils present and Yes Normal hearing present Speech: No Abnormal speech present Extrem General: Yes normal to inspection, No clubbing, No cyanosis and No edema Psych Appearance: grossly normal and well kempt Mental Status: mental status grossly normal Speech and movement: Normal speech and movement present Affect: normal affect Attitude: cooperative Thought process: Normal thought process present and not confabulating Thought content: Normal thought content present Insight: Good insight present (Psych) Judgement: Good judgement present (Psych) Assessment & Plan Assessment & Plan (1) GERD (gastroesophageal reflux disease): Code(s): K21.9 - Gastro-esophageal reflux disease without esophagitis Category: Medical (2) Change in stool: Code(s): R19.5 - Other fecal abnormalities Category: Medical (3) GERD (gastroesophageal reflux disease): Code(s): K21.9 - Gastro-esophageal reflux disease without esophagitis Category: Medical Plan Better BM's with 1 senna a night, even after running out and less bloating. Easier to pass gas. Now GERD is worse. Worse with fats and sugars and when he lays down at night. We spent time going over the pathophysiology of GERD and the various causes that It. Since he seems see moving his bowels well I think we need to expand our investigation to see if there is any reversible underlying causes. Start protonix 40mg bid, give GERD diet, barium swallow, US, HP breath test, RAST allergy (pt request). Reviewed colonoscopy prep keep 12/08 COLONOSCOPY Scheduled for 11/25/2023 BIOPSY Orders: Orders H Pylori Breath Test Today K21.9 - Gastro-esophageal reflux disease without esophagitis US abdomen complete Today K21.9 - Gastro-esophageal reflux disease without esophagitis [place] barium swallow Today K21.9 - Gastro-esophageal reflux disease without esophagitis Rast Allergen Today R19.5 - Other fecal abnormalities Medications: New pantoprazole (Protonix) 40 mg PO BID 60 tabs 6RF 30 days K21.9 - Gastro- esophageal reflux disease without esophagitis Refilled sennosides (Senna Laxative) 17.2 mg (2 x 8.6 mg) PO BEDTIME 60 tabs 6RF Coding Level of Care Code Est Pt Level 4 (09452) Diagnoses GERD (gastroesophageal reflux disease) K21.9 Change in stool R19.5 Time Spent (min) 39
[2023-10-23 14:27] VITALS: BP 108/60; PULSE 64; BMI 34.1
== END 2023-10-23 15:45 | disposition home or self-care (01) ==
PROVIDERS: PCP Student in an Organized Health Care Education/Training Program; Visit Provider Nurse Practitioner
DX: K21.9 Gastro-esophageal reflux disease without esophagitis (principal); R19.5 Other fecal abnormalities
CPT/HCPCS: 99214

== ENCOUNTER 2023-11-25 07:34 | Day surgery (SDC) | payer OTHER, SELFPAY ==
[2023-11-25 05:23] VITALS: BMI 34.1
--- NOTE | 2023-11-25 06:22 | MHC.SHP ---
Pre-Procedural Eval Section A - 24 Hr Update-Section A only Date of Service: 11/25/23 Section B - Complete if H&P > 30 days Chief Complaint: Family history of colon polyps, unspecified Details of Present Illness: abn bowel habits Relevant Family History (Specify if Yes): Yes Relevant Social History: None Present Medications: see Short Stay Collaborative assessment Medical History: Significant History (GERD (gastroesophageal reflux disease)) History of Previous Operations: Relevant previous surgery/procedure and date(s) ( Hx of tonsillectomy H/O adenoidectomy) Allergies: Allergies Allergy/AdvReac Type Severity Reaction Status Date / Time azithromycin [From Zithromax] Allergy Severe Rash Verified 10/23/23 14:28 Review of Systems Sugical H&P ROS: Negative: Constitution, Cardiovascular, Respiratory, Neurological, Psychiatric, Hem-Onc, Allergic/Immunologic, Gastrointestinal, Genitourinary, Musculoskeletal, Integumentary, Endocrine and Eyes/Ears/Nose/Throat Exam Surgical H&P Exam: Normal: HEENT, Normal: Heart, Normal: Lungs, Normal: Extremities, Normal: Abdomen, Normal: Skin and Normal: Neurological Plan Diagnosis/Plan: Unchanged I have reviewed the history and physical and performed a pertinent physical examination on my patient. No changes have occurred unless specified. Time Spent With Patient Time: Total time managing care of this patient today ____ minutes.
[2023-11-25 07:37] VITALS: BP 145/79; PULSE 68; RESP 18; TEMP 36.4; O2SAT 98; BMI 32.8
[2023-11-25] MEDS: Lactated Ringers 1,000 ML 50 ML IVCONT (07:57)
--- NOTE | 2023-11-25 07:57 | P.CONAN_ITS ---
HPI - Anesthesia Eval Consult details Narrative: 28 yo M presenting for colonoscopy [facility] Active Problems Active Problems: All Active Problems GERD (gastroesophageal reflux disease) (Acute) Pre-op examination (Acute) Family history of polyps in the colon (Acute) Change in stool (Acute) Chronic idiopathic constipation (Acute) Abdominal pain (Acute) Back pain (Acute) Obesity (Acute) Past Medical History Medical History (Updated 11/25/23 @ 05:23 by Mara Finley RN) GERD (gastroesophageal reflux disease) Family History Family History Maternal Grandfather Colon polyps Heart attack Paternal Grandfather Colon polyps Family history of problems with anesthesia: No Surgical History Surgical History Hx of tonsillectomy H/O adenoidectomy History of Problems with Anesthesia: No Social History Social History Alcohol intake: current Alcohol intake frequency: holidays/special occasions only Alcohol type: beer and wine Patient Tobacco Use Status: Former Tobacco user e-Cigarette/Vaping Use: Former Use Date or number of years quit: Quit 2021 Are you DNR?: No Advance Directives: No Advance Directives Information Provided: Yes Nutrition Risks: No Nutritional Risk Meds Allergies Allergy/AdvReac Type Severity Reaction Status Date / Time azithromycin [From Zithromax] Allergy Severe Rash Verified 10/23/23 14:28 Active Medications: Current Medications Lactated Ringer's (Lr) 1,000 mls @ 50 mls/hr IVCONT .Q20H [facility] Home Medications ?Medication ?Instructions ?Recorded ?Confirmed ?Last Taken ?Type multivitamin 1 tab PO DAILY 07/01/23 07/24/23 Unknown History omega 5-zzp-rmi-fish oil 100 1 cap PO DAILY 07/01/23 07/24/23 Unknown History mg-160 mg-1,000 mg capsule (Fish Oil) Exam Exam Date and Time: November 25, 2023 0755 Height,Weight and Vital Signs: Height 5 ft 10 in Weight 103.716 kg Last Vital Signs Temp 97.6 F 11/25/23 07:37 Pulse 68 11/25/23 07:37 Resp 18 11/25/23 07:37 BP 145/79 H 11/25/23 07:37 Pulse Ox 98 11/25/23 07:37 O2 Del Method Room Air 11/25/23 07:37 Airway Mallampati Class: II TM Dist: >3cm Neck ROM: Full Loose/Missing/Broken Teeth: No (patient denies any loose or broken teeth) Heart: S1S2 Lungs: CTAB Assessment and Plan Assessment Anesthesia Assessment: Anesthesia Plan Discussed and Chart Reviewed Final Anesthetic Review Family History of Problems with Anesthesia: No History of Problems with Anesthesia: No NPO: Yes ASA Class: II Final Preanesthetic Review: No Changes in Pt Med Stat, Meds/Allgs Chart Reviewed, Consent Obtained/Reviewed and Anes Risks/Benef Reviewed Patient Risk: Low Procedure Risk: Low Anesthetic Plan Anesthetic Plan: MAC: and Agree w/ Assess. and Plan Disposition: Standard PACU
--- NOTE | 2023-11-25 08:39 | P.OPN-COLO_ITS ---
Colonoscopy Operative Note Operative Note Date of Service: 11/25/23 Narrative: Operative Information Procedure Description: Colonoscopy Indication: abn bowel habits Anesthesia: MAC COLONOSCOPY Instrument: Olympus variable stiffness pediatric scope 190L Colonoscopy Monitoring: Vital signs and clinical assessment, continuous EKG monitoring, Pulse oximetry, Carbon Dioxide monitoring and blood pressure monitoring were done throughout the procedure. Colon withdrawal time was 11 minutes. Procedure: The patient was placed in the left lateral decubitis position and pre-procedure medications were administered. After a digital rectal examination of the ano-rectum, the video colonoscope was inserted into the rectum and advanced through the colon to the cecum/TI. The colonoscope was slowly withdrawn in a retrograde panoramic fashion and the colon mucosa was carefully examined including a retroflexed view of the rectum. Findings and interventions are described below. Procedure Difficulty: easy Findings: Terminal Ileum- patchy erosive ileitis, bx taken Bx taken from right, left and rectum areas in different jars Cecum:normal Ascending Colon: normal Transverse Colon -normal Descending Colon:normal Sigmoid Colon: normal Rectum: Retroflexion with small internal hemorrhoids seen, grade I Anorectum - normal Intervention: cold forceps bx Colon preparation: [place] Bowel Preparation Scale Right colon; 2 Transverse colon: 3 Left colon; 3 (0 = Unprepared colon segment with mucosa not seen due to solid stool that cannot be cleared. 1 = Portion of mucosa of the colon segment seen, but other areas of the colon segment not well seen due to staining, residual stool and/or opaque liquid. 2 = Minor amount of residual staining, small fragments of stool and/or opaque liquid, but mucosa of colon segment seen well. 3 = Entire mucosa of colon segment seen well with no residual staining, small fragments of stool or opaque liquid) Impression and Post Procedure Diagnosis: ileitis internal hemorrhoids Plan: High fiber diet leaflet Avoid straining at stool, epsom salts and sitz bath, anusol supps or cream Repeat Colonoscopy aged 45 years or earlier if clinically indicated avoid nsaids consider CTe and EGD to evaluate further for crohns disease Above findings were reviewed with the patient and relevant handouts were provided if indicated.
[2023-11-25 09:06] VITALS: BP 91/52; PULSE 72; RESP 16; TEMP 36.6; O2SAT 96
[2023-11-25 09:11] VITALS: BP 92/54; PULSE 69; RESP 18; O2SAT 96
[2023-11-25 09:16] VITALS: BP 115/71; PULSE 70; RESP 18; O2SAT 97
[2023-11-25 09:21] VITALS: BP 116/77; PULSE 67; RESP 18; TEMP 36.7; O2SAT 96
[2023-12-02 23:03] LABS: Lactoferrin, Fecal, Quant. <6.25 mcg/mL (<7.25)
== END 2023-11-25 10:20 | disposition home or self-care (01) ==
PROVIDERS: PCP Student in an Organized Health Care Education/Training Program; Visit Provider Internal Medicine Gastroenterology
PROC: 0DJD8ZZ Inspection of Lower Intestinal Tract, Via Natural or Artificial Opening Endoscopic (ICD-10-PCS; CPT 45378; principal; 2023-11-25 08:30)
DX: R19.5 Other fecal abnormalities (principal); Z83.719 Family history of colon polyps, unspecified; K52.89 Other specified noninfective gastroenteritis and colitis; K59.04 Chronic idiopathic constipation; K64.0 First degree hemorrhoids; K21.9 Gastro-esophageal reflux disease without esophagitis; Z79.899 Other long term (current) drug therapy; Z88.1 Allergy status to other antibiotic agents; Z87.891 Personal history of nicotine dependence
CPT/HCPCS: 45380; 83631; 88305; J2704

== ENCOUNTER → 2023-11-25 07:34 | Outpatient (BNV) | payer OTHER, SELFPAY | PROVIDERS: PCP Student in an Organized Health Care Education/Training Program; Visit Provider Internal Medicine Gastroenterology | DX: K52.9 Noninfective gastroenteritis and colitis, unspecified (principal); K64.0 First degree hemorrhoids | CPT/HCPCS: 45380 ==

== ENCOUNTER 2023-12-07 08:54 | Outpatient (REF) | payer OTHER, SELFPAY ==
--- NOTE | ~2023-12-07 | US_ITS ---
EXAMINATION: US ABDOMEN COMPLETE CLINICAL INFORMATION: Gastroesophageal reflux disease without esophagitis. Abdominal pain. COMPARISON: None available. TECHNIQUE: Real-time imaging of the abdominal viscera. Limited visualization due to bowel gas. FINDINGS: PANCREAS: Limited visualization of pancreatic tail and head. Imaged portion of pancreatic body is unremarkable. ABDOMINAL AORTA: Limited visualization. INFERIOR VENA CAVA: Visualized portions are normal. LIVER: Increased hepatic parenchymal heterogeneity and echogenicity could be associated with hepatocellular disease/hepatic steatosis and substantially limits visualization. Correlation with liver function tests and clinical exam recommended to determine further management. GALLBLADDER: No gallstones. No gallbladder wall thickening. COMMON BILE DUCT: Normal in caliber measuring 0.5 cm in diameter. RIGHT KIDNEY: No hydronephrosis. No renal calculi. Limited visualization. The kidney measures 11.1 cm in maximum dimension. LEFT KIDNEY: No hydronephrosis. No renal calculi. Limited visualization. The kidney measures 11.4 cm in maximum dimension. SPLEEN: Splenomegaly The spleen measures 13.3 cm in maximum dimension. FREE FLUID: None. US/US abdomen complete IMPRESSION: 1. Increased hepatic parenchymal heterogeneity and echogenicity could be associated with hepatocellular disease/hepatic steatosis and substantially limits visualization. Correlation with liver function tests and clinical exam recommended to determine further management. 2. Splenomegaly.
== END 2023-12-07 08:55 | disposition home or self-care (01) ==
LOC: HO.US 08:54
PROVIDERS: Visit Provider Nurse Practitioner
DX: K21.9 Gastro-esophageal reflux disease without esophagitis (principal)
CPT/HCPCS: 76700

== ENCOUNTER 2023-12-09 15:56 | Outpatient (AMB) | payer OTHER, SELFPAY ==
--- NOTE | 2023-12-09 15:58 | A.OFFVIS_ITS ---
Vital Signs 12/09/23 16:16 Height 5 ft 9 in Weight 230 lb 7.766 oz BMI 34.0 BP 104/67 Blood Pressure Location Lt brachial Position Sitting Pulse 75 Intake Visit Reasons: s/p colon Intake Note: Henrry presents in the office as a follow up colonoscopy. CC: He states that he is not having any concerns - just here for the results. Management Consultant Required: No Allergies azithromycin [From Zithromax] Allergy (Severe, Verified 12/09/23 16:16) Rash HPI HPI s/p colon: Details: Assessment & Plan (1) GERD (gastroesophageal reflux disease): Code(s): K21.9 - Gastro-esophageal reflux disease without esophagitis Category: Medical (2) Change in stool: Code(s): R19.5 - Other fecal abnormalities Category: Medical (3) GERD (gastroesophageal reflux disease): Code(s): K21.9 - Gastro-esophageal reflux disease without esophagitis Category: Medical Plan Better BM's with 1 senna a night, even after running out and less bloating. Easier to pass gas. Now GERD is worse. Worse with fats and sugars and when he lays down at night. We spent time going over the pathophysiology of GERD and the various causes that Dr. Zepeda. Since he seems see moving his bowels well I think we need to expand our investigation to see if there is any reversible underlying causes. Start protonix 40mg bid, give GERD diet, barium swallow, US, HP breath test, RAST allergy (pt request). Reviewed colonoscopy prep keep 12/08 Orders: Orders H Pylori Breath Test Today K21.9 - Gastro-esophageal reflux disease without esophagitis US abdomen complete Today K21.9 - Gastro-esophageal reflux disease without esophagitis FL barium swallow Today K21.9 - Gastro-esophageal reflux disease without esophagitis Rast Allergen Today R19.5 - Other fecal abnormalities Medications: New pantoprazole (Protonix) 40 mg PO BID 60 tabs 6RF 30 days K21.9 - Gastro- esophageal reflux disease without esophagitis Refilled sennosides (Senna Laxative) 17.2 mg (2 x 8.6 mg) PO BEDTIME 60 tabs 6RF LABS: Laboratory Tests 10/23/23 15:38 H. pylori Breath Test Negative RAST PANEL SHOWS NO SIGNIFICANT FOOD ALLERGIES ULTRASOUND OF THE ABDOMEN COLONOSCOPY Findings: Terminal Ileum- patchy erosive ileitis, bx taken Bx taken from right, left and rectum areas in different jars Cecum:normal Ascending Colon: normal Transverse Colon -normal Descending Colon:normal Sigmoid Colon: normal Rectum: Retroflexion with small internal hemorrhoids seen, grade I Anorectum - normal Intervention: cold forceps bx Impression and Post Procedure Diagnosis: ileitis internal hemorrhoids Plan: High fiber diet leaflet Avoid straining at stool, epsom salts and sitz bath, anusol supps or cream Repeat Colonoscopy aged 45 years or earlier if clinically indicated avoid nsaids consider CTe and EGD to evaluate further for crohns disease BIOPSY Received: 11/25/23 Diagnosis A. Terminal ileum, biopsy: Terminal ileal mucosa with focally active inflammation. B. Colon, right, biopsy: Colonic mucosa within normal limits. C. Colon, left, biopsy: Colonic mucosa within normal limits. D. Rectum, biopsy: Rectal mucosa within normal limits TODAY'S VISIT We review the results and generally he is not having trouble with diarrhea weight loss or other alarm symptoms. He will have mostly bloating and CIC, but also problems with fatty foods. Stopped pantoprazole as it worsened CIC, same with famotidine. However, he only has HB when he eats greasy and spicy foods and it can be resolved with TUMS. NO food allergies, no HP. Will get CRP, fecan saundra and prometheus to r/o IBD but also ileitis could be from the prep. He eats a LOT of fiber daily. This was suggested by the endoscopist, but he is good about this. ROV 6 weeks. [facility] Medical History GERD (gastroesophageal reflux disease) Surgical History Hx of colonoscopy Hx of tonsillectomy H/O adenoidectomy Family History Maternal Grandfather Colon polyps Heart attack Paternal Grandfather Colon polyps Social History Alcohol intake: current Alcohol intake frequency: holidays/special occasions only Alcohol type: beer and wine Patient Tobacco Use Status: Former Tobacco user e-Cigarette/Vaping Use: Former Use Date or number of years quit: Quit 2021 Review of Systems Const Denies fatigue, Denies fever(s), Denies night sweats, Denies poor appetite and Denies weight loss ENT Reports Normal hearing present, Denies dental pain, Denies dysphagia, Denies hearing loss, Denies mouth pain, Denies odynophagia, Denies throat swelling, Denies tongue swelling and Reports other (Dentition adequate) Card Reports no additional complaints Resp Reports no additional complaints GI Details: Denies abdominal pain, Denies melena, Reports bloating, Denies hematochezia, Reports constipation, Denies GI cramping, Denies dysphagia, Denies excessive flatus, Denies early satiety, Denies heartburn, Denies diarrhea, Denies nausea, Denies odynophagia, Denies vomiting and Denies hematemesis Skin/Breast Denies pruritus, Denies lesions, Denies rash and Denies jaundice Neuro Reports Normal hearing present and Denies Abnormal speech present Endo Denies fatigue Aller/Immun Denies throat swelling and Denies tongue swelling Physical Exam Vital Signs: Last Vital Signs Pulse 75 12/09/23 16:16 BP 104/67 12/09/23 16:16 BMI result Body Mass Index 34.0 Const General: cooperative, no acute distress, well developed and well groomed Nutritional Appearance: well nourished and obese Orientation/consciousness: oriented to person, oriented to place and oriented to time Limitations: No language barrier HEENT Head: Yes normocephalic and Yes atraumatic Eyes General: appearance normal, both eyes and all related structures Pupils: Equal, round and reactive pupils present Neck Neck: Yes normal visual inspection and Yes no lymphadenopathy Thyroid: Thyroid normal Resp Effort & Inspection: normal respiratory effort and able to speak in complete sentences Auscultation: clear to auscultation bilaterally Cardio Rate: regular rate Rhythm: regular rhythm Heart sounds: Normal, physiologic split S2 sound present Peripheral pulses: radial pulses present and posterior tibial pulses present GI Inspection: No distended, No Abdominal panniculus present and Yes obesity Palpation (GI): Soft to palpation, nontender, no guarding, not rigid and No hepatosplenomegaly present Percussion: Yes normal to percussion Auscultation: normal bowel sounds Rectal Exam - Male: Yes deferred Skin General skin exam: no rashes or lesions noted, turgor normal, skin not dry, no jaundice, No spider nevi and no striae Rashes: no rashes Nails: normal Neuro General: oriented to person, oriented to place and oriented to time Cranial nerves: Yes Equal, round and reactive pupils present and Yes Normal hearing present Speech: No Abnormal speech present Extrem General: Yes normal to inspection, No clubbing, No cyanosis and No edema Psych Appearance: grossly normal and well kempt Mental Status: mental status grossly normal Speech and movement: Normal speech and movement present Affect: normal affect Attitude: cooperative Thought process: Normal thought process present and not confabulating Thought content: Normal thought content present Insight: Fair insight present (Psych) Judgement: Fair judgement present (Psych) Results Reviewed Results Reviewed: Laboratory Tests 10/23/23 15:38 H. pylori Breath Test Negative RAST PANEL SHOWS NO SIGNIFICANT FOOD ALLERGIES ULTRASOUND OF THE ABDOMEN COLONOSCOPY Findings: Terminal Ileum- patchy erosive ileitis, bx taken Bx taken from right, left and rectum areas in different jars Cecum:normal Ascending Colon: normal Transverse Colon -normal Descending Colon:normal Sigmoid Colon: normal Rectum: Retroflexion with small internal hemorrhoids seen, grade I Anorectum - normal Intervention: cold forceps bx Impression and Post Procedure Diagnosis: ileitis internal hemorrhoids Plan: High fiber diet leaflet Avoid straining at stool, epsom salts and sitz bath, anusol supps or cream Repeat Colonoscopy aged 45 years or earlier if clinically indicated avoid nsaids consider CTe and EGD to evaluate further for crohns disease BIOPSY Received: 11/25/23 Diagnosis A. Terminal ileum, biopsy: Terminal ileal mucosa with focally active inflammation. B. Colon, right, biopsy: Colonic mucosa within normal limits. C. Colon, left, biopsy: Colonic mucosa within normal limits. D. Rectum, biopsy: Rectal mucosa within normal limits Assessment & Plan Assessment & Plan (1) Chronic idiopathic constipation: Code(s): K59.04 - Chronic idiopathic constipation Category: Medical (2) Terminal ileitis: Code(s): K50.00 - Crohn's disease of small intestine without complications Category: Medical Plan We review the results and generally he is not having trouble with diarrhea weight loss or other alarm symptoms. In fact he suffers more with constipation. This is not a very likely presentation for inflammatory bowel disease. He will have mostly bloating and CIC, but also problems with fatty foods. Stopped pantoprazole as it worsened CIC, same with famotidine. However, he only has HB when he eats greasy and spicy foods and it can be resolved with TUMS. NO food allergies, no HP. Will get CRP, fecal calprotectin and prometheus to r/o IBD but also ileitis could be from the prep. He eats a LOT of fiber daily. This was suggested by the endoscopist, but he is good about this. ROV 6 weeks. Orders: Orders C Reactive Protein 12/09/23 K50.00 - Crohn's disease of small intestine without complications, K59.04 - Chronic idiopathic constipation [facility] IBD SGI 12/09/23 K50.00 - Crohn's disease of small intestine without complications, K59.04 - Chronic idiopathic constipation Calprotectin, Fecal 12/09/23 K50.00 - Crohn's disease of small intestine without complications, K59.04 - Chronic idiopathic constipation Medications: New sennosides (senna) 17.2 mg (2 x 8.6 mg) PO DAILY 180 tabs 1RF 90 days Discontinued pantoprazole Discontinued Reason: Doctor's Order 40 mg PO BID 30 days 60 tabs 6RF K21.9 - Gastro-esophageal reflux disease without esophagitis Coding Level of Care Code Est Pt Level 3 (83678) Diagnoses Chronic idiopathic constipation K59.04 Terminal ileitis K50.00
[2023-12-09 16:16] VITALS: BP 104/67; PULSE 75; BMI 34.0
== END 2023-12-09 16:35 | disposition home or self-care (01) ==
PROVIDERS: PCP Student in an Organized Health Care Education/Training Program; Visit Provider Nurse Practitioner
DX: K59.04 Chronic idiopathic constipation (principal); K50.00 Crohn's disease of small intestine without complications
CPT/HCPCS: 99213

== ENCOUNTER 2023-12-09 15:56 | Outpatient (REF) | payer OTHER, SELFPAY ==
[2023-12-09 18:02] LABS: C Reactive Protein 0.72 mg/dL (< or = 0.50)
== END 2023-12-09 15:57 | disposition home or self-care (01) ==
LOC: HO.LAB 15:56
PROVIDERS: PCP Student in an Organized Health Care Education/Training Program; Visit Provider Nurse Practitioner
DX: K59.04 Chronic idiopathic constipation (principal); K50.00 Crohn's disease of small intestine without complications
CPT/HCPCS: 36415; 81405; 81479; 82397; 83520; 86140; 88346; 88350

== ENCOUNTER 2024-02-29 09:06 | Outpatient (REF) | payer OTHER, SELFPAY ==
--- NOTE | ~2024-02-29 | FL_ITS ---
EXAMINATION: XR FLUOROSCOPY UPPER GI WITH AIR CLINICAL INFORMATION: Reflux. Abdominal discomfort/bloating COMPARISON: None TECHNIQUE: Fluoroscopic air contrast upper GI examination was performed utilizing standard techniques with thin and thick barium and effervescent granules. Numerous spot images were obtained. FINDINGS: Dual and single contrast images of the esophagus demonstrate normal caliber, contour, and mucosal pattern. Mild to moderate cricopharyngeal achalasia is present. No evidence of stricture, mass, or ulcerations identified. Esophageal peristalsis was normal. A small type I hiatal hernia is present. Mild gastroesophageal reflux is seen in the distal esophagus. Dual contrast and single contrast images of the stomach demonstrated normal contour and mucosal pattern without evidence of mass, ulceration, or other abnormality. Contrast freely passed into the gastric antrum and duodenal bulb without delay. Single and air-contrast images of the duodenal bulb demonstrate no abnormality. The duodenal sweep has a normal appearance, course, and mucosal fold appearance. The imaged small bowel has a normal fold pattern and caliber. Contrast is seen in the distal ileum in less than 10 minutes. No strictures or masses are present. FLUOROSCOPY TIME: 5 minutes 52 seconds DOSE AREA PRODUCT: 4829 uGy-m2 (microgray-meter squared) FL/FL barium swallow IMPRESSION: 1. Mild to moderate cricopharyngeal achalasia. 2. Small type I hiatal hernia with mild gastroesophageal reflux. 3. Rapid transit of the barium column, with the distal ileum opacified in less than 10 minutes. Etiology is unclear. Normal mucosal patterns observed. This procedure was performed by Lance Contreras PA-C, and supervised by Dr. Knight Electronically signed by: Brendan Knight MD 03/02/2024 01:04 PM EDT
== END 2024-02-29 09:07 | disposition home or self-care (01) ==
LOC: HO.XRAY 09:06
PROVIDERS: Visit Provider Nurse Practitioner
DX: K21.9 Gastro-esophageal reflux disease without esophagitis (principal)
CPT/HCPCS: 74220

== ENCOUNTER → 2024-02-29 09:07 | Outpatient (BNV) | payer OTHER, SELFPAY | PROVIDERS: Visit Provider Radiology Diagnostic Radiology | DX: K21.9 Gastro-esophageal reflux disease without esophagitis (principal) | CPT/HCPCS: 74246 ==

== ENCOUNTER → 2024-03-24 15:49 | Outpatient (AMB) | payer OTHER, SELFPAY ==
--- NOTE | 2024-03-24 15:58 | MHC.OFFVIS ---
Vital Signs 03/24/24 16:01 Height 5 ft 9 in Weight 237 lb 3.478 oz BMI 35.0 BP 139/69 Blood Pressure Location Lt brachial Position Sitting Pulse 76 Intake Visit Reasons: follow up r/s from 01/20 Intake Note: Henrry presents to in office follow up of labs. CC: Patient reports doing well unless he eats like crap . Denies any GI concerns. He states that he was not able to do the stool test and would like to know if he can use a [facility] lab. Machine Pan Greaser Required: No Accompanied by: Self / Same As Patient Allergies azithromycin [From Zithromax] Allergy (Severe, Verified 12/09/23 16:16) Rash HPI HPI follow up r/s from 01/20: Details: Assessment & Plan (1) Chronic idiopathic constipation: Code(s): K59.04 - Chronic idiopathic constipation Category: Medical (2) Terminal ileitis: Code(s): K50.00 - Crohn's disease of small intestine without complications Category: Medical Plan We review the results and generally he is not having trouble with diarrhea weight loss or other alarm symptoms. In fact he suffers more with constipation. This is not a very likely presentation for inflammatory bowel disease. He will have mostly bloating and CIC, but also problems with fatty foods. Stopped pantoprazole as it worsened CIC, same with famotidine. However, he only has HB when he eats greasy and spicy foods and it can be resolved with TUMS. NO food allergies, no HP. Will get CRP, fecal calprotectin and prometheus to r/o IBD but also ileitis could be from the prep. He eats a LOT of fiber daily. This was suggested by the endoscopist, but he is good about this. ROV 6 weeks. Orders: Orders C Reactive Protein 12/09/23 K50.00 - Crohn's disease of small intestine without complications, K59.04 - Chronic idiopathic constipation [facility] IBD SGI 12/09/23 K50.00 - Crohn's disease of small intestine without complications, K59.04 - Chronic idiopathic constipation Calprotectin, Fecal 12/09/23 K50.00 - Crohn's disease of small intestine without complications, K59.04 - Chronic idiopathic constipation Medications: New sennosides (senna) 17.2 mg (2 x 8.6 mg) PO DAILY 180 tabs 1RF 90 days Discontinued pantoprazole Discontinued Reason: Doctor's Order 40 mg PO BID 30 days 60 tabs 6RF K21.9 - Gastro-esophageal reflux disease without esophagitis LABS: Laboratory Tests 12/09/23 16:58 C-Reactive Protein 0.72 H [facility] IBD c/w Crohns. BARIUM SWALLOW [facility] labs are consistent with Crohn's disease. TODAY'S VISIT [facility] labs are consistent with Crohn's disease. However now he feels his symptoms are not quite so bad. I think we will proceed to try to get the CT enterography and for now watch and wait. He is educated about what signs and symptoms could manifest as a Crohn's exacerbation and should this happen me she contact me immediately. Return office visit in 6 months [facility] Medical History GERD (gastroesophageal reflux disease) Surgical History Hx of colonoscopy Hx of tonsillectomy H/O adenoidectomy Family History Maternal Grandfather Colon polyps Heart attack Paternal Grandfather Colon polyps Social History Alcohol intake: current Alcohol intake frequency: holidays/special occasions only Alcohol type: beer and wine Patient Tobacco Use Status: Former Tobacco user e-Cigarette/Vaping Use: Former Use Date or number of years quit: Quit 2021 Review of Systems Const Denies fatigue, Denies fever(s), Denies night sweats, Denies poor appetite and Denies weight loss ENT Reports Normal hearing present, Denies dental pain, Denies dysphagia, Denies hearing loss, Denies mouth pain, Denies odynophagia, Denies throat swelling, Denies tongue swelling and Reports other (Dentition adequate) Card Reports no additional complaints Resp Reports no additional complaints GI Details: Denies abdominal pain, Denies melena, Reports bloating, Denies hematochezia, Denies constipation, Denies GI cramping, Denies dysphagia, Denies excessive flatus, Denies early satiety, Denies heartburn, Denies diarrhea, Reports loose stools, Denies nausea, Denies odynophagia, Denies vomiting and Denies hematemesis Skin/Breast Denies pruritus, Denies lesions, Denies rash and Denies jaundice Neuro Reports Normal hearing present and Denies Abnormal speech present Endo Denies fatigue Aller/Immun Denies throat swelling and Denies tongue swelling Physical Exam Vital Signs: Last Vital Signs Pulse 76 03/24/24 16:01 BP 139/69 03/24/24 16:01 BMI result Body Mass Index 35.0 Const General: cooperative, no acute distress, well developed and well groomed Nutritional Appearance: well nourished and obese Orientation/consciousness: oriented to person, oriented to place and oriented to time Limitations: No language barrier HEENT Head: Yes normocephalic and Yes atraumatic Eyes General: appearance normal, both eyes and all related structures Pupils: Equal, round and reactive pupils present Neck Neck: Yes normal visual inspection and Yes no lymphadenopathy Thyroid: Thyroid normal Resp Effort & Inspection: normal respiratory effort and able to speak in complete sentences Auscultation: clear to auscultation bilaterally Cardio Rate: regular rate Rhythm: regular rhythm Heart sounds: Normal, physiologic split S2 sound present Peripheral pulses: radial pulses present and posterior tibial pulses present GI Inspection: No distended, No Abdominal panniculus present and Yes obesity Palpation (GI): Soft to palpation, nontender, no guarding, not rigid and No hepatosplenomegaly present Percussion: Yes normal to percussion Auscultation: normal bowel sounds Rectal Exam - Male: Yes deferred Skin General skin exam: no rashes or lesions noted, turgor normal, skin not dry, no jaundice, No spider nevi and no striae Rashes: no rashes Nails: normal Neuro General: oriented to person, oriented to place and oriented to time Cranial nerves: Yes Equal, round and reactive pupils present and Yes Normal hearing present Speech: No Abnormal speech present Extrem General: Yes normal to inspection, No clubbing, No cyanosis and No edema Psych Appearance: grossly normal and well kempt Mental Status: mental status grossly normal Speech and movement: Normal speech and movement present Affect: normal affect Attitude: cooperative Thought process: Normal thought process present and not confabulating Thought content: Normal thought content present Insight: Good insight present (Psych) Judgement: Good judgement present (Psych) Assessment & Plan Assessment & Plan (1) Change in stool: Code(s): R19.5 - Other fecal abnormalities Category: Medical (2) Terminal ileitis: Code(s): K50.00 - Crohn's disease of small intestine without complications Category: Medical Plan [facility] labs are consistent with Crohn's disease. However now he feels his symptoms are not quite so bad. I think we will proceed to try to get the CT enterography and for now watch and wait. He is educated about what signs and symptoms could manifest as a Crohn's exacerbation and should this happen me she contact me immediately. Return office visit in 6 months Orders: Orders CT enterography 03/24/24 K50.00 - Crohn's disease of small intestine without complications, R19.5 - Other fecal abnormalities Coding Level of Care Code Est Pt Level 3 (76172) Diagnoses Change in stool R19.5 Terminal ileitis K50.00
[2024-03-24 16:01] VITALS: BP 139/69; PULSE 76; BMI 35.0
== END ==
LOC: HO.HGI 15:49
PROVIDERS: PCP Student in an Organized Health Care Education/Training Program; Visit Provider Nurse Practitioner
DX: R19.5 Other fecal abnormalities (principal); K50.00 Crohn's disease of small intestine without complications
CPT/HCPCS: 99213

== ENCOUNTER → 2024-03-24 15:49 | Outpatient (BNVA) | payer OTHER, SELFPAY | PROVIDERS: PCP Student in an Organized Health Care Education/Training Program; Visit Provider Nurse Practitioner ==

== ENCOUNTER 2024-05-30 08:04 | Outpatient (REF) | payer OTHER, SELFPAY ==
--- NOTE | ~2024-05-30 | CT_ITS ---
CLINICAL HISTORY: K50.00 - Crohns disease of small intestine without complications CT abdomen and pelvis with IV contrast-CT enterography. Comparison: None Findings: Stomach is decompressed. Apparent small hiatal hernia. Duodenal and proximal through mid jejunal loops decompressed. Negative contrast distention of distal jejunal loops and ileum without dilatation. Slight mucosal hyperenhancement of the terminal ileum at the ileocecal valve. Wall thickening and edema of the sigmoid colon from junction with descending colon through rectosigmoid suggesting mild colitis, most pronounced at the rectum suggesting associated proctitis. No infiltration of the mesocolon. No involvement of remainder of the colon. Focal segmental luminal narrowing of a small bowel loop in the right lower quadrant reference axial image 400 through 447 series 5 and coronal image 34 series 7. Most likely peristalsis with stricture felt less likely. No proximal small bowel dilatation or obstruction. Normal appendix. Lung bases clear. Heart size normal. Liver, gallbladder, biliary tree, pancreas, spleen, adrenals are unremarkable. Mild fullness of the renal pelvis and calices of both kidneys without hydroureter. No stones evident in the course of either ureter. Normal-appearing urinary bladder. Normal abdominal aorta and major branch vessels. Patent hepatic veins, IVC and portal vein. No pathologic adenopathy. Transitional thoracolumbar and lumbosacral level, indeterminate for hypoplastic ribs at T12 versus sacralization of L5. No acute appearing bone abnormality. Soft tissues intact. Patulous umbilicus. Impression: Subtle mucosal hyperenhancement of the terminal ileum, suggesting mild active Crohn's enteritis. No wall thickening or adjacent inflammatory change. Diffuse mild colitis of the sigmoid colon through rectal vault. Apparent sparing remainder of the colon. Narrowed small bowel loop in the right lower quadrant most likely peristalsis, with stricture felt less likely. No fistulas or marked inflammatory change. No other acute findings. Transitional thoracolumbar and lumbosacral vertebral levels. This document has been electronically signed by: Reece Fields MD on 05/31/2024 12:25:42
[2024-05-30] MEDS: iohexoL 350 MG/ML 75 ML INFUS..BTL 85 ML IV (10:16)
[2024-05-30] MEDS: Sorbitol/Mannit/Xanth Imaging 500 ML LIQUID 1500 ML PO (10:17)
== END 2024-05-30 08:05 | disposition home or self-care (01) ==
LOC: HO.CT 08:04
PROVIDERS: PCP Internal Medicine; Visit Provider Nurse Practitioner
DX: K50.00 Crohn's disease of small intestine without complications (principal); R19.5 Other fecal abnormalities
CPT/HCPCS: 74177; Q9967